=== PATIENT | female | born 1975 | race American Indian/Alaskan Native ===

== ENCOUNTER 2016-11-18 15:08 | Inpatient (IN) | payer OTHER ==
[2016-11-18 16:00] LABS: Bacteria,Urine 1+ /HPF (Negative); Bilirubin,Urine NEG (Negative); Blood,Urine NEG (Negative); Ketones,Urine 20 mg/dL (Negative); Leukocyte Esterase,Urine TR (Negative); Mucus,Urine 1+ /HPF; Nitrite,Urine NEG (Negative); Urobilinogen,Urine < 2.0 mg/dL (<2.0); WBC,Urine < 1.0 /HPF (0.0-6.0)
[2016-11-18] MEDS ORDERED: MORPHINE IV ONE ×2 (16:15→18:51)
[2016-11-18] MEDS ORDERED: ZOFRAN IV ONE (16:15)
[2016-11-18 16:22] LABS: Basophils % (Auto) 0.7 % (0.0-1.8); Eosinophils % (Auto) 0.1 % (0.0-4.3); Hematocrit 41.8 % (30.3-42.9); Hemoglobin 13.9 gm/dl (10.1-14.3); Mean Corpuscular HGB Conc 33 % (30-34); Mean Corpuscular Hemoglobin 29 pg (28-32); Mean Corpuscular Volume 86 fl (79-97); Platelet Count 274 K/mm3 (140-440); Red Blood Count 4.84 M/mm3 (3.65-5.03); Red Cell Distribution Width 14.6 % (13.2-15.2)
[2016-11-18 16:40] LABS: Anion Gap 20 mmol/L; Blood Urea Nitrogen 6 mg/dL (7-17); Calcium 9.4 mg/dL (8.4-10.2); Carbon Dioxide 21 mmol/L (22-30); Chloride 103.4 mmol/L (98-107); Glucose 109 mg/dL (65-100); Potassium 3.8 mmol/L (3.6-5.0); Sodium 141 mmol/L (137-145)
[2016-11-18 17:23] LABS: Alanine Aminotransferase 13 units/L (7-56); Albumin 4.1 g/dL (3.9-5); Albumin/Globulin Ratio 1.1 %; Alkaline Phosphatase 98 units/L (35-129); Lipase 40 units/L (13-60); Total Protein 7.7 g/dL (6.3-8.2)
[2016-11-18 17:27] LABS: Bilirubin,Direct < 0.2 mg/dL (0-0.2); Bilirubin,Indirect 0.2 mg/dL
[2016-11-18] MEDS ORDERED: NACL ONE (17:29)
[2016-11-18] MEDS ORDERED: MORPHINE ONE (18:47)
[2016-11-18] MEDS ORDERED: PEPCID IV ONE (18:48)
[2016-11-18] MEDS ORDERED: ALUM-MAG HYDROX-SIMETH 200-200-20MG/5ML PO ONE (18:48)
[2016-11-18] MEDS ORDERED: LIDOCAINE VISCOUS 2% PO ONE (18:48)
--- NOTE | 2016-11-18 19:09 | Emergency Department Report ---
ED Chest Pain HPI - General Chief Complaint: Chest Pain Stated Complaint: CHEST PAINS Time Seen by Provider: 11/18/16 15:44 Source: patient, EMS Mode of arrival: Stretcher Limitations: No Limitations - History of Present Illness Initial Comments: This is a 41-year-old Afro-[place] female presents the emergency department via EMS with complaint of pain to the lower middle portion of the chest and the upper middle portion of the abdomen that has been going on and getting progressively worse since yesterday afternoon. She developed some nausea and vomiting this morning. She denies any shortness of breath, fever, dysuria, vaginal bleeding or discharge. The patient has a history of cholelithiasis and eventually cholecystectomy through [facility]. She also says that she has some mesh in there and says that she has been having a problem with this. She is not taken anything for symptoms prior to presentation. No recent travel or sick contacts at home. She denies any other past medical history but does present with hypertension. She is a former smoker, having quit 3 months ago. She received a full dose aspirin in route. Severity scale (0 -10): 7 - Related Data Home Medications Medication Instructions Recorded Confirmed Last Taken No Known Home Medications [No 11/18/16 11/18/16 Unknown Reported Home Medications] Allergies Allergy/AdvReac Type Severity Reaction Status Date / Time No Known Allergies Allergy Unverified 11/18/16 15:24 Heart Score - HEART Score History: Moderately suspicious EKG: Normal Age: < 45 Risk factors: 1-2 risk factors Troponin: < normal limit HEART Score: 2 - Critical Actions Critical Actions: 0-3 pts:0.9-1.7%risk of adverse cardiac event.Candidate for discharge ED Review of Systems ROS: Stated complaint: CHEST PAINS Other details as noted in HPI Comment: All other systems reviewed and negative Constitutional: denies: chills, fever Eyes: denies: eye pain, eye discharge, vision change ENT: denies: ear pain, throat pain Respiratory: denies: cough, shortness of breath, wheezing Cardiovascular: chest pain. denies: palpitations Gastrointestinal: abdominal pain, nausea, vomiting Genitourinary: denies: urgency, dysuria, discharge Musculoskeletal: denies: back pain, joint swelling, arthralgia Skin: denies: rash, lesions Neurological: denies: headache, weakness, paresthesias ED Past Medical Hx - Surgical History Additional Surgical History: Cyst r emoved from colon - Social History Smoking Status: Never Smoker - Medications Home Medications: Home Medications Medication Instructions Recorded Confirmed Last Taken Type No Known Home Medications [No 11/18/16 11/18/16 Unknown History Reported Home Medications] ED Physical Exam - General Limitations: No Limitations - Other Other exam information: GENERAL: The patient is well-developed well-nourished. HEENT: Normocephalic. Atraumatic. Extraocular motions are intact. Patient has moist mucous membranes. Pupils equal reactive to light bilaterally. NECK: Supple. Trachea is midline. CHEST/LUNGS: Clear to auscultation. There is no respiratory distress noted. Chest pain is not reproducible palpation of chest wall. HEART/CARDIOVASCULAR: Regular. There is no tachycardia. There is no gallop rub or murmur. ABDOMEN: Abdomen is soft. Unable to reproduce upper abdominal discomfort to palpation. No guarding rebound tenderness. Patient has normal bowel sounds. There is no abdominal distention. SKIN: Skin is warm and dry. NEURO: The patient is awake, alert, and oriented. The patient is cooperative. The patient has no focal neurologic deficits. The patient has normal speech. MUSCULOSKELETAL: There is no tenderness or deformity. There is no limitation range of motion. There is no evidence of acute injury. ED Course Vital Signs 11/18/16 11/18/16 11/18/16 15:02 15:21 15:22 Temperature Pulse Rate 50 L 42 L Respiratory 20 13 Rate Blood Pressure 180/85 Blood Pressure [Right] O2 Sat by Pulse 100 100 100 Oximetry 11/18/16 11/18/16 11/18/16 15:23 15:30 15:40 Temperature 98.3 F Pulse Rate 51 L 44 L 45 L Respiratory 21 9 L 9 L Rate Blood Pressure 180/85 180/85 Blood Pressure 180/85 [Right] O2 Sat by Pulse 100 100 99 Oximetry 11/18/16 11/18/16 11/18/16 15:50 16:00 16:18 Temperature Pulse Rate 58 L 59 L Respiratory 22 17 Rate Blood Pressure 180/85 180/85 180/85 Blood Pressure 180/85 187/90 [Right] O2 Sat by Pulse 100 100 100 Oximetry 11/18/16 11/18/16 11/18/16 16:20 16:32 16:40 Temperature Pulse Rate 55 L 58 L 54 L Respiratory 6 L 18 Rate Blood Pressure 187/90 187/90 187/90 Blood Pressure [Right] O2 Sat by Pulse 90 100 Oximetry 11/18/16 11/18/16 11/18/16 16:50 17:00 17:10 Temperature Pulse Rate 54 L 54 L 50 L Respiratory 15 12 11 L Rate Blood Pressure 187/90 187/90 206/89 Blood Pressure [Right] O2 Sat by Pulse 97 89 92 Oximetry 11/18/16 11/18/16 11/18/16 17:20 17:30 17:40 Temperature Pulse Rate 55 L 41 L 46 L Respiratory 12 23 12 Rate Blood Pressure 206/89 206/89 206/89 Blood Pressure [Right] O2 Sat by Pulse 96 96 95 Oximetry 11/18/16 11/18/16 11/18/16 17:50 18:00 18:29 Temperature Pulse Rate 56 L 48 L Respiratory 13 9 L Rate Blood Pressure 206/89 177/76 169/67 Blood Pressure 177/76 [Right] O2 Sat by Pulse 99 97 99 Oximetry 11/18/16 11/18/16 11/18/16 18:30 18:31 18:41 Temperature Pulse Rate 50 L 53 L 56 L Respiratory 14 14 16 Rate Blood Pressure 169/67 169/67 Blood Pressure 169/67 [Right] O2 Sat by Pulse 100 99 100 Oximetry 11/18/16 11/18/16 11/18/16 18:51 19:00 19:13 Temperature Pulse Rate 52 L 50 L Respiratory 12 11 L Rate Blood Pressure 169/67 162/91 177/76 Blood Pressure [Right] O2 Sat by Pulse 96 92 66 L Oximetry 11/18/16 11/18/16 11/18/16 19:19 19:21 19:31 Temperature Pulse Rate 65 45 L 64 Respiratory 18 20 13 Rate Blood Pressure 162/91 162/91 Blood Pressure 119/75 [Right] O2 Sat by Pulse 100 96 96 Oximetry 11/18/16 11/18/16 11/18/16 19:41 19:51 20:01 Temperature Pulse Rate 46 L 41 L 46 L Respiratory 21 23 15 Rate Blood Pressure 162/91 134/86 115/58 Blood Pressure [Right] O2 Sat by Pulse 97 98 99 Oximetry 11/18/16 11/18/16 11/18/16 20:11 20:21 20:31 Temperature Pulse Rate 49 L 47 L 44 L Respiratory 22 22 21 Rate Blood Pressure 115/58 115/58 115/58 Blood Pressure [Right] O2 Sat by Pulse 96 96 95 Oximetry 11/18/16 11/18/16 11/18/16 20:41 20:51 21:00 Temperature Pulse Rate 46 L 45 L 46 L Respiratory 15 15 12 Rate Blood Pressure 115/58 115/58 111/66 Blood Pressure [Right] O2 Sat by Pulse 96 97 97 Oximetry 11/18/16 11/18/16 11/18/16 21:11 21:21 21:31 Temperature Pulse Rate 50 L 45 L 47 L Respiratory 22 18 20 Rate Blood Pressure 111/66 111/66 111/66 Blood Pressure [Right] O2 Sat by Pulse 97 96 97 Oximetry 11/18/16 11/18/16 11/18/16 21:41 21:51 22:00 Temperature Pulse Rate 47 L 54 L 48 L Respiratory 20 15 16 Rate Blood Pressure 111/66 111/66 119/70 Blood Pressure [Right] O2 Sat by Pulse 98 97 99 Oximetry 11/18/16 11/18/16 22:11 22:21 Temperature Pulse Rate 50 L 50 L Respiratory 20 18 Rate Blood Pressure 119/70 119/70 Blood Pressure [Right] O2 Sat by Pulse 96 100 Oximetry XAVIER score - Xavier Score Age > 65: (0) No Aspirin use within the Past 7 Days: (0) No 3 or more CAD Risk Factors: (0) No 2 or more Angina events in past 24 hrs: (1) Yes Known CAD with more than 50% Stenosis: (0) No Elevated Cardiac Markers: (0) No ST Deviation Greater than 0.5mm: (0) No XAVIER Score: 1 ED Medical Decision Making - Lab Data Result diagrams: 11/19/16 03:10 11/19/16 03:10 - EKG Data -: EKG Interpreted by Me EKG shows normal: sinus rhythm, axis, intervals (prolonged QT interval), QRS complexes (Q waves to the anterior leads), ST-T waves Rate: bradycardia (51 bpm) - EKG Data When compared to previous EKG there are: previous EKG unavailable Interpretation: other (sinus bradycardia, normal axis, prolonged QT interval, Q waves to the anterior leads) - Radiology Data Radiology results: report reviewed, image reviewed interpreted by me: Chest x-ray did not show any acute process. Heart is normal shape and size. No effusions. No pneumothorax. No signs of pneumonia seen. Abdominal x-ray does not show any acute process. CT of the abdomen and pelvis with IV contrast shows a 4.7 cm complex cystic lesion in the right ovary. 2.4 cm left Bartholin's cyst. CT angiography of the chest shows no evidence of pulmonary embolism. 2.8 cm round cystic appearing lesion in the right breast in the upper outer quadrant possibly a cyst. Right upper lobe subsegmental atelectasis or parenchymal scar. Multiple left renal angiomyolipoma - Medical Decision Making 41-year-old with lower middle chest pain and upper epigastric discomfort. Negative troponins thus far but elevated and equivocal d-dimer. CT angiography does not show any PE. There is a cystic lesion in the right breast and some atelectasis. CT of the abdomen and pelvis shows a ovarian cyst and a Bartholin' s gland cyst. No these appear to be etiology of the patient's symptoms. She's never had a cardiac workup. Occasionally the patient was seen having moderate to significant bradycardia. For this reason she'll be admitted for further evaluation and has been accepted for admission by the hospitalist. This is been presented to the hospitalist, Dr. Blackwell, he will either do the history and physical or will pass along to the admitting hospitalist coming in next. Critical Care Time: No Critical care attestation.: If time is entered above; I have spent that time in minutes in the direct care of this critically ill patient, excluding procedure time. ED Disposition Clinical Impression: Bradycardia Chest pain Qualifiers: Chest pain type: unspecified Qualified Code(s): R07.9 - Chest pain, unspecified Abdominal pain Qualifiers: Abdominal location: epigastric Qualified Code(s): R10.13 - Epigastric pain Disposition: 09 OP ADMIT IP TO THIS HOSP Is pt being admited?: Yes Condition: Stable Time of Disposition: 19:56
--- NOTE | 2016-11-18 19:51 | Cat Scan Report ---
FINAL REPORT EXAM: CT ANGIO CHEST HISTORY: CP, elevated dimer TECHNIQUE: High-resolution helical axial images were obtained of the chest during intravenous administration of iodinated contrast. Images are reconstructed in the sagittal and coronal planes. PRIORS: None. FINDINGS: There is no evidence of pulmonary embolism, the pulmonary arteries opacify normally. The heart and thoracic aorta appear normal. There is right upper lobe subsegmental atelectasis or parenchymal scar. Otherwise, the lungs are clear. Images through the upper abdomen show surgical clips in the gallbladder fossa. Also, there are multiple low-attenuation lesions in the left kidney consistent with angiomyolipomas. The bones are unremarkable. There is a 2.8 cm round cystic appearing lesion in the right breast upper outer quadrant possibly representing a cyst. IMPRESSION: 1. No evidence of pulmonary embolism. 2. 2.8 cm round cystic appearing lesion in the right breast upper outer quadrant possibly a cyst. Further evaluation with mammogram and ultrasound is recommended. 3. Right upper lobe subsegmental atelectasis or parenchymal scar. Three-month follow-up chest CT is recommended. 4. Multiple left renal angiomyolipomas.
--- NOTE | 2016-11-18 20:07 | Cat Scan Report ---
FINAL REPORT EXAM: CT ABDOMEN PELVIS W CON HISTORY: Abd pain TECHNIQUE: Dynamic helical CT scan through the abdomen and pelvis during and again after intravenous injection of iodinated contrast. Images are reconstructed in the sagittal and coronal planes. Oral contrast was not given. PRIORS: None. FINDINGS: The lung bases are clear. The liver, spleen and adrenal glands appear normal. There are surgical clips in the gallbladder fossa. There has been surgical removal of pancreatic head. There are multiple low-attenuation lesions throughout the left kidney consistent with angiomyolipoma. The uterus is absent. The left ovary appears grossly normal. There is a 3.9 x 4.7 x 3.8 cm complex cystic lesion of the right ovary. The right kidney appears normal. The stomach appears grossly within normal limits. There are no abnormally dilated loops of bowel or acute inflammatory changes. The abdominal aorta has a normal diameter. The bones and subcutaneous soft tissues are unremarkable for age. There is a 2.4 cm left vulvar cyst consistent with a Bartholin cyst. IMPRESSION: 1. 4.7 cm complex cystic lesion in the right ovary. Further evaluation with ultrasound is recommended. 2. 2.4 cm left Bartholin cyst 3. Otherwise, no acute findings in the abdomen/pelvis
[2016-11-18] MEDS ORDERED: MORPHINE IV PRN (22:19)
[2016-11-18] MEDS ORDERED: ZOFRAN IV PRN (22:19)
[2016-11-18] MEDS ORDERED: MILK OF MAGNESIA PO PRN (22:19)
[2016-11-18] MEDS ORDERED: DULCOLAX PR PRN (22:19)
[2016-11-18] MEDS ORDERED: SODIUM CHLORIDE FLUSH SYRINGE 10 ML IV PRN (22:19)
[2016-11-18] MEDS ORDERED: TYLENOL PO PRN (22:19)
--- NOTE | 2016-11-18 22:26 | History and Physical Report ---
History of Present Illness History of present illness: 41-year-old man with no medical problems comes emergency room with complaints of chest pain located in the epigastric area, described as something squeezing her chest, constant, intensity 7/10, radiating to the left shoulder, worse with activity, better rest. Admits to nausea vomiting 2 days, shortness breath, diaphoresis palpitation, dizziness. She states she saw her primary care physician yesterday and everything was okay Review of systems Constitutional: no fever, no chills, no weight loss Ears, eyes, nose, mouth and throat: no nasal congestion, no nasal discharge, no sinus pressure, no vision change, no red eye. Neck: No neck pain or rigidity. Cardiovascular: no orthopnea, no palpitations, no leg swelling Respiratory: No cough, no congestion, no wheezing Gastrointestinal: abdominal pain, hematochezia Genitourinary : no dysuria, frequency , no hematuria Musculoskeletal: no joint swelling or muscle ache Integumentary: no rash, no pruritis Neurological: no parathesias, no focal weakness Endocrine: no cold or heat intolerance, no polyuria or polydipsia Hematologic/Lymphatic: no easy bruising, no easy bleeding, no gland swelling Allergic/Immunologic: no urticaria, no angioedema PAST MEDICAL HISTORY:none PAST SURGICAL HISTORY: Cystectomy FAMILY HISTORY: Hypertension SOCIAL HISTORY: Hypertension Medications and Allergies Allergies Allergy/AdvReac Type Severity Reaction Status Date / Time No Known Allergies Allergy Unverified 11/18/16 15:24 Home Medications Medication Instructions Recorded Confirmed Last Taken Type No Known Home Medications [No 11/18/16 11/18/16 Unknown History Reported Home Medications] Exam - Physical Exam Narrative exam: Gen. appearance: Patient lying in bed, no apparent distress HEENT: Normocephalic, atraumatic, pupils equally round and reactive to light, extraocular movement intact, and no sclericterus,. No JVD or thyromegaly or nodule,neck supple, no carotid bruit ,mucous membranes moist, no exudate or erythema Heart: S1, S2, regular rate and rhythm Lungs: Clear to auscultation bilaterally, breathing comfortable Abdomen: Positive bowel sounds, nontender, nondistended, no organomegaly Extremity: No edema, cyanosis, clubbing Skin: No rash, nodules, warm, dry Neuro: Oriented 3, cranial nerves II-12 intact, speech is fluent, motor and sensory intact - Constitutional Vitals: Temp Pulse Resp BP Pulse Ox 98.3 F 46 L 15 115/58 96 11/18/16 15:23 11/18/16 20:41 11/18/16 20:41 11/18/16 20:41 11/18/16 20:41 Results - Labs CBC & Chem 7: 11/19/16 03:10 11/19/16 03:10 Labs: Abnormal lab results 11/18/16 11/18/16 11/18/16 Range/Units 16:01 16:01 16:01 Lymph # 1.1 L (1.2-5.4) K/mm3 Seg Neutrophils % 79.2 H (40.0-70.0) % D-Dimer 291.93 H (0-234) ng/mlDDU Carbon Dioxide 21 L (22-30) mmol/L BUN 6 L (7-17) mg/dL Creatinine 0.6 L (0.7-1.2) mg/dL Glucose 109 H (65-100) mg/dL - Imaging and Cardiology EKG: image reviewed Chest x-ray: image reviewed Assessment and Plan Assessment Hypertensive urgency, movement Chest pain secondary to #1 Mass versus cyst in the right breast Plan Admit to medicine Start IV hydralazine as needed for blood pressure control Check cardiac enzymes, liver profile and obtain a stress test Ultrasound of the breast Start aspirin, IV morphine, DVT prophylaxis
[2016-11-18 23:30] LABS: Basophils % (Auto) 0.9 % (0.0-1.8); Hematocrit 40.2 % (30.3-42.9); Hemoglobin 13.5 gm/dl (10.1-14.3); Mean Corpuscular HGB Conc 34 % (30-34); Mean Corpuscular Hemoglobin 30 pg (28-32); Mean Corpuscular Volume 88 fl (79-97); Platelet Count 288 K/mm3 (140-440); Red Blood Count 4.58 M/mm3 (3.65-5.03); Red Cell Distribution Width 14.8 % (13.2-15.2); White Blood Count 6.4 K/mm3 (4.5-11.0)
[2016-11-18 23:44] LABS: Anion Gap 19 mmol/L; Blood Urea Nitrogen 6 mg/dL (7-17); Calcium 9.3 mg/dL (8.4-10.2); Carbon Dioxide 24 mmol/L (22-30); Chloride 103.6 mmol/L (98-107); Glucose 106 mg/dL (65-100); Sodium 143 mmol/L (137-145)
[2016-11-18 23:49] LABS: Creatine Kinase 104 units/L (30-135)
[2016-11-18 23:51] LABS: Creatine Kinase MB < 1.0 ng/mL (0.0-4.0)
[2016-11-18] MEDS: MORPHINE IV PRN (23:54)
[2016-11-19 02:31] LABS: Cholesterol 138 mg/dL (50-199); HDL Cholesterol 52 mg/dL (40-59); LDL Cholesterol,Direct 77 mg/dL (50-130); Triglycerides 45 mg/dL (2-149)
[2016-11-19 03:38] LABS: Basophils % (Auto) 0.1 % (0.0-1.8); Eosinophils % (Auto) 0.1 % (0.0-4.3); Hematocrit 40.7 % (30.3-42.9); Hemoglobin 13.3 gm/dl (10.1-14.3); Mean Corpuscular HGB Conc 33 % (30-34); Mean Corpuscular Hemoglobin 28 pg (28-32); Mean Corpuscular Volume 87 fl (79-97); Platelet Count 260 K/mm3 (140-440); Red Blood Count 4.68 M/mm3 (3.65-5.03); Red Cell Distribution Width 14.5 % (13.2-15.2); White Blood Count 7.1 K/mm3 (4.5-11.0)
[2016-11-19 03:48] LABS: Anion Gap 19 mmol/L; BUN/Creatinine Ratio 11.66; Blood Urea Nitrogen 7 mg/dL (7-17); Calcium 8.4 mg/dL (8.4-10.2); Carbon Dioxide 22 mmol/L (22-30); Chloride 102.7 mmol/L (98-107); Glucose 102 mg/dL (65-100); Potassium 3.5 mmol/L (3.6-5.0); Sodium 140 mmol/L (137-145)
--- NOTE | 2016-11-19 08:25 | Admit Criteria Form ---
Admission Criteria Documentation: TELEMETRY CARE Telemetry Admission Guidelines (Place 'X' for any and all applicable criteria): Admission to telemetry [A] may be indicated for ANY ONE of the following(1)(2)(3 )(4)(5): [X ]I. Cardiac disease, including ANY ONE of the following (9)(10)(11)(12)( 13): [ ]a) Postacute ND [ ]b) Low-risk patients with ST-segment elevation ND who have undergone successful percutaneous coronary intervention [ ]c) Unstable angina [ ]d) Suspected ND (until it is ruled out) [ ]e) Post cardiac surgery (first 48 to 72 hours unless complications occur) [ X]f) Acute arrhythmias (including significant tachycardia or bradycardia) [B] [ ]g) Firing of an implantable cardioverter defibrillator [C] [ ]h) Suspected pacemaker or implantable cardioverter defibrillator malfunction (10) [ ]i) New administration or adjustment of an antiarrhythmic drug [D ] [ ]j) Child admitted for acute congestive heart failure [ ]j) Long QT syndrome [ ]k) Advanced heart block (eg, second-degree Mobitz type II, third- degree heart block) [ ]l) Acute myocarditis or pericarditis [ ]m) Short-term (ambulatory or inpatient) monitoring after a cardiac procedure as indicated by ANY ONE of the following [E]: [ ]i) Electrophysiologic studies [ ]ii) Percutaneous coronary intervention with stent placement [ ]iii) Pacemaker placement with cardiac conduction defect [ ]iv) Implantable cardiac defibrillator placement [ ]II. Drug overdose or poisoning with substance that causes arrhythmias or QT prolongation (eg, phenothiazines, sympathomimetic agents, cyclic antidepressants, digitalis, antiarrhythmic drugs)(15) [ ]III. Short-term (ambulatory or inpatient) monitoring after therapeutic or diagnostic procedure requiring conscious sedation or anesthesia (eg, endoscopy, elective cardioversion) [ ]IV. Acute cerebrovascular even[F](18) [ ]V. Massive blood transfusion (eg, at least 10 units of packed red blood cells in 24 hours) [ ]. Variceal bleeding after endoscopy, sclerotherapy, or IV vasopressin [ ]VII. Uncorrected electrolyte abnormalities associated with an increased risk of dangerous arrhythmia [G]; examples include [ ]a) Hyperkalemia with attributable ECG changes [ ]b) Potassium greater than 6.5 mmol/L (mEq/L) in a patient without history of chronic renal disease [ ]c) Prolonged QT attributed to hypokalemia, hypomagnesemia, or hypocalcemia [ ]VIII.Unexplained syncope or other neurologic event suspected of being due to arrhythmia due to a finding that increases risk; examples include(19)(20)(21): [ ]a) High-risk ECG findings (eg, bifascicular block, bradycardia, abnormal QT interval, ventricular pre- excitation) [ ]b) History of previous syncope due to arrhythmia [ ]c) Abnormal ventricular function (eg, reduced ejection fraction ) [ ]d) Exertional or supine syncope [ ]e) Concerning syncope characteristics (eg, sudden loss of consciousness without prodrome) [ ]f) Family history of sudden [ ]g) Use of arrhythmogenic medication [ ]h) Suspected cardiac ischemia [ ]i) Known channelopathy (eg, long QT syndrome, Brugada syndrome, or catecholaminergic paroxysmal ventricular tachycardia) [ ]j) Known structural heart disease (eg, hypertrophic cardiomyopathy , severe valvular disease) [ ]k) Palpitations preceding syncope The original [employer] content created by [employer] has been revised. The portions of the content which have been revised are identified through the use of italic text or in bold, and [facility] has neither reviewed nor approved the modified material. All other unmodified content is copyright [employer]. Please see references footnoted in the original [employer] edition 2016 Admission Criteria Met: Yes
--- NOTE | 2016-11-19 08:47 | XRay Report ---
ABDOMINAL SERIES: History: Abdominal pain. Erect chest film shows no acute or significant changes involving the heart or lung arnold. There is no evidence of free air beneath the diaphragms. The gas pattern within the abdomen is unremarkable. There is no evidence of bowel dilatation, significant air-fluid levels, or masses. Organ shadows are unremarkable. Cholecystectomy clips are noted in the right upper quadrant. IMPRESSION: Abdominal series within normal limits.
[2016-11-19] MEDS: MORPHINE IV PRN ×4 (08:55→22:05)
[2016-11-19] MEDS: ASPIRIN PO SCH (13:42)
[2016-11-19] MEDS: LOVENOX SUB-Q SCH (13:42)
--- NOTE | 2016-11-19 18:15 | Progress Note ---
Assessment and Plan Assessment and plan: Chest pain -Cardiac events are negative -Stress test was negative - Pain control Right complex ovarian cyst -GI consulted Right breast cystic mass -Endoscope as an outpatient Repaired ventral hernia - She is complaining pain - We'll scheduled her as outpatient to be seen by surgery DVT prophylaxis Disposition - We will be discharged tomorrow after she was seen by [facility]. History Interval history: Patient was seen and evaluated this morning, she is still complaining some pressure-like sensation on the chest. Hospitalist Physical - Physical exam Narrative exam: Not in cardiopulmonary distress. The patient is obese. Vital signs as documented. Head exam is unremarkable. No scleral icterus . Neck is without jugular venous distension, thyromegaly, or carotid bruits. Lungs are clear to auscultation. Cardiac exam reveals regular rate and Rhythm. First and second heart sounds normal. No murmurs, rubs or gallops. Abdominal exam reveals normal bowel sounds, no masses, no organomegaly and no aortic enlargement. Extremities are nonedematous and both femoral and pedal pulses are normal. STUDIO MANAGER: Alert and oriented 3. No focal weakness. - Constitutional Vitals: Temp Pulse Resp BP Pulse Ox 98.0 F 65 18 126/66 100 11/19/16 16:43 11/19/16 16:43 11/19/16 16:43 11/19/16 16:43 11/19/16 16:43 Results - Labs CBC & Chem 7: 11/19/16 03:10 11/19/16 03:10 Labs: Laboratory Last Values WBC 7.1 K/mm3 (4.5-11.0) 11/19/16 03:10 RBC 4.68 M/mm3 (3.65-5.03) 11/19/16 03:10 Hgb 13.3 gm/dl (10.1-14.3) 11/19/16 03:10 Hct 40.7 % (30.3-42.9) 11/19/16 03:10 MCV 87 fl (79-97) 11/19/16 03:10 MCH 28 pg (28-32) 11/19/16 03:10 MCHC 33 % (30-34) 11/19/16 03:10 RDW 14.5 % (13.2-15.2) 11/19/16 03:10 Plt Count 260 K/mm3 (140-440) 11/19/16 03:10 Lymph % (Auto) 36.0 % (13.4-35.0) H 11/19/16 03:10 [place] % (Auto) 6.0 % (0.0-7.3) 11/19/16 03:10 Eos % (Auto) 0.1 % (0.0-4.3) 11/19/16 03:10 Baso % (Auto) 0.1 % (0.0-1.8) 11/19/16 03:10 Lymph # 2.5 K/mm3 (1.2-5.4) 11/19/16 03:10 [place] # 0.4 K/mm3 (0.0-0.8) 11/19/16 03:10 Eos # 0.0 K/mm3 (0.0-0.4) 11/19/16 03:10 Baso # 0.0 K/mm3 (0.0-0.1) 11/19/16 03:10 Seg Neutrophils % 57.8 % (40.0-70.0) 11/19/16 03:10 Seg Neutrophils # 4.1 K/mm3 (1.8-7.7) 11/19/16 03:10 D-Dimer 291.93 ng/mlDDU (0-234) H 11/18/16 16:01 Sodium 140 mmol/L (137-145) 11/19/16 03:10 Potassium 3.5 mmol/L (3.6-5.0) L 11/19/16 03:10 Chloride 102.7 mmol/L (98-107) 11/19/16 03:10 Carbon Dioxide 22 mmol/L (22-30) 11/19/16 03:10 Anion Gap 19 mmol/L 11/19/16 03:10 BUN 7 mg/dL (7-17) 11/19/16 03:10 Creatinine 0.6 mg/dL (0.7-1.2) L 11/19/16 03:10 Estimated GFR > 60 ml/min 11/19/16 03:10 BUN/Creatinine Ratio 11.66 % 11/19/16 03:10 Glucose 102 mg/dL (65-100) H 11/19/16 03:10 Calcium 8.4 mg/dL (8.4-10.2) 11/19/16 03:10 Total Bilirubin 0.40 mg/dL (0.1-1.2) 11/18/16 16:01 Direct Bilirubin < 0.2 mg/dL (0-0.2) 11/18/16 16:01 Indirect Bilirubin 0.2 mg/dL 11/18/16 16:01 AST 28 units/L (5-40) 11/18/16 16:01 ALT 13 units/L (7-56) 11/18/16 16:01 Alkaline Phosphatase 98 units/L (35-129) 11/18/16 16:01 Total Creatine Kinase 104 units/L (30-135) 11/18/16 23:08 CK-MB (CK-2) < 1.0 ng/mL (0.0-4.0) 11/18/16 23:08 CK-MB (CK-2) Rel Index 0.9 (0-4) 11/18/16 23:08 Troponin T < 0.010 ng/mL (0.00-0.029) 11/19/16 07:12 Total Protein 7.7 g/dL (6.3-8.2) 11/18/16 16:01 Albumin 4.1 g/dL (3.9-5) 11/18/16 16:01 Albumin/Globulin Ratio 1.1 % 11/18/16 16:01 Triglycerides 45 mg/dL (2-149) 11/18/16 23:08 Cholesterol 138 mg/dL (50-199) 11/18/16 23:08 LDL Cholesterol Direct 77 mg/dL (50-130) 11/18/16 23:08 HDL Cholesterol 52 mg/dL (40-59) 11/18/16 23:08 Cholesterol/HDL Ratio 2.65 % 11/18/16 23:08 Lipase 40 units/L (13-60) 11/18/16 16:01 Urine Color Yellow (Yellow) 11/18/16 15:25 Urine Turbidity Clear (Clear) 11/18/16 15:25 Urine pH 7.0 (5.0-7.0) 11/18/16 15:25 Ur Specific [place] 1.019 (1.003-1.030) 11/18/16 15:25 Urine Protein 100 mg/dl mg/dL (Negative) 11/18/16 15:25 Urine Glucose (UA) Neg mg/dL (Negative) 11/18/16 15:25 Urine Ketones 20 mg/dL (Negative) 11/18/16 15:25 Urine Blood Neg (Negative) 11/18/16 15:25 Urine Nitrite Neg (Negative) 11/18/16 15:25 Urine Bilirubin Neg (Negative) 11/18/16 15:25 Urine Urobilinogen < 2.0 mg/dL (<2.0) 11/18/16 15:25 Ur Leukocyte Esterase Tr (Negative) 11/18/16 15:25 Urine WBC (Auto) < 1.0 /HPF (0.0-6.0) 11/18/16 15:25 Urine RBC (Auto) 3.0 /HPF (0.0-6.0) 11/18/16 15:25 U Epithel Cells (Auto) 3.0 /HPF (0-13.0) 11/18/16 15:25 Urine Bacteria (Auto) 1+ /HPF (Negative) 11/18/16 15:25 Urine Mucus 1+ /HPF 11/18/16 15:25 Urine HCG, Qual Negative (Negative) 11/18/16 15:25
[2016-11-19] MEDS: PROTONIX PO SCH (19:48)
--- NOTE | 2016-11-19 20:35 | Consultation ---
History of Present Illness Consult date: 11/19/16 Reason for consult: other (ovarian cyst) History of present illness: 43-year-old black female para 6006 status post hysterectomy in 1998 for pain and endometriosis. Patient's had multiple abdominal surgeries including placement of a mesh and presented to the emergency room she states for repeated episode of vomiting up or abdominal pain and epigastric pain. Patient workup included the abdominal pelvic CT scan which showed a possible complex cyst on the patient's right ovary. Past History Past Medical History: other (endometriosis ) Past Surgical History: section (with bilateral tubal ligation), hysterectomy, other (patient states abdominal cyst removed with mesh placed in her abdomen) Medications and Allergies Allergies Allergy/AdvReac Type Severity Reaction Status Date / Time No Known Allergies Allergy Unverified 11/18/16 15:24 Home Medications Medication Instructions Recorded Confirmed Last Taken Type No Known Home Medications [No 11/18/16 11/18/16 Unknown History Reported Home Medications] Active Meds: Active Medications Acetaminophen (Tylenol) 650 mg PO Q4H PRN PRN Reason: Pain MILD(1-3)/Fever >100.5/HAYES Aspirin (Aspirin) 325 mg PO QDAY FORMERLY [facility], 1928[facility]1983 Last Admin: 11/19/16 13:42 Dose: 325 mg Bisacodyl (Dulcolax) 10 mg SD QDAY PRN PRN Reason: Constipation unrelieved by MOM Enoxaparin Sodium (Lovenox) 40 mg SUB-Q QDAY FOR[facility]LY [facility], 1928[facility]1983 Last Admin: 11/19/16 13:42 Dose: 40 mg Magnesium Hydroxide (Milk Of Magnesia) 30 ml PO Q4H PRN PRN Reason: Constipation Morphine Sulfate (Morphine) 2 mg IV Q4H PRN PRN Reason: Pain, Moderate (4-6) Last Admin: 11/19/16 18:15 Dose: 2 mg Ondansetron HCl (Zofran) 4 mg IV Q4H PRN PRN Reason: N/V unrelieved by Reglan Pantoprazole Sodium (Protonix) 40 mg PO QDAY FOR[facility], [facility]1983 Last Admin: 11/19/16 19:48 Dose: 40 mg - Vital Signs Vital signs: Vital Signs Pulse Pulse Ox 50 L 100 11/18/16 15:02 11/18/16 15:02 Temp Pulse Resp BP Pulse Ox 98.0 F 65 18 126/66 100 11/19/16 16:43 11/19/16 16:43 11/19/16 16:43 11/19/16 16:43 11/19/16 16:43 - Physical Exam Abdomen: Positive: normal appearance, soft, other (neurosurgical incision) Results Result Diagrams: 11/19/16 03:10 11/19/16 03:10 Abnormal lab results 11/18/16 11/18/16 11/19/16 Range/Units 23:08 23:08 03:10 Lymph % (Auto) 36.0 H (13.4-35.0) % Seg Neutrophils % 72.4 H (40.0-70.0) % Potassium (3.6-5.0) mmol/L BUN 6 L (7-17) mg/dL Creatinine 0.5 L (0.7-1.2) mg/dL Glucose 106 H (65-100) mg/dL 11/19/16 Range/Units 03:10 Lymph % (Auto) (13.4-35.0) % Seg Neutrophils % (40.0-70.0) % Potassium 3.5 L (3.6-5.0) mmol/L BUN (7-17) mg/dL Creatinine 0.6 L (0.7-1.2) mg/dL Glucose 102 H (65-100) mg/dL All other labs normal. Assessment and Plan - Patient Problems (1) Ovarian cyst Current Visit: Yes Status: Acute Plan to address problem: As per recommendation radiologist we'll order a pelvic ultrasound which we'll give you better imaging of her ovary. She does not feel that this is source of the patient's discomfort and most likely is benign cyst that will resolve on its own. We will evaluate with ultrasound tomorrow for more clarity. Also attempted to contact attending for this patient is on the hospitalist services were informed that intended me back tomorrow morning.
[2016-11-20] MEDS: MORPHINE IV PRN (06:06)
--- NOTE | 2016-11-20 10:02 | Discharge Summary ---
Providers - Providers Date of Admission: 11/18/16 22:19 Date of discharge: 11/20/16 Attending physician: NICANOR MENDOZA MD 11/19/16 13:43 Consult to Physician [CONS] Routine Consulting Provider: PADMINI JO Reason For Exam: right complex ovarian mass Place consult to:: Sandro Notified:: Sandro Phone number called:: [phone] Was contact made?: Yes If yes, spoke with:: danny Time called:: 19:02 Primary care physician: [facility]WN TECHNICIAN Hospitalization Reason for admission: chest pain Condition: Stable Pertinent studies: Exercise stress test was done and negative for ischemia but i didn't see any documentation CTA showed right breast cyst otherwise negative. Hospital course: 41-year-old man with no medical problems comes emergency room with complaints of chest pain located in the epigastric area, described as something squeezing her chest, constant, intensity 7/10, radiating to the left shoulder, worse with activity, better rest. Admits to nausea vomiting 2 days, shortness breath, diaphoresis palpitation, dizziness. She states she saw her primary care physician yesterday and everything was okay. patient was admitted and cardiac enzymes were negative and stress test was negative for ischemia. patient said she had ventral hernia repair at [facility] and was scheduled for mesh removal and didn't make her appointment and asked for evaluation by surgery and scheduled to see Dr Guerra as an O/P. Patient has incidental findings of right breast cyst and recommended to have breat U/S, but radiology said they can't do as inpatient and I have communicated with the patient and she understood and verbalized she will schedule with her PCP for evaluation of the breast. Patient has history of GERD and she is on H2 brennen. Dr Jo from [employer] was consulted to evaluate complex ovarian cyst, saw her and here is his recommendations "As per recommendation radiologist we'll order a pelvic ultrasound which we'll give you better imaging of her ovary. She does not feel that this is source of the patient's discomfort and most likely is benign cyst that will resolve on its own. We will evaluate with ultrasound tomorrow for more clarity." Patient was hemodynamically stable at the time of discharge. Her medications were reviewed and updated at the time of discharge. Patients questions and concerns were addressed at bedside. Disposition: DC-01 TO HOME OR SELFCARE Time spent for discharge: 31 minutes - Discharge Diagnoses (1) Abdominal pain Status: Acute Qualifiers: Abdominal location: epigastric Qualified Code(s): R10.13 - Epigastric pain (2) Bradycardia Status: Acute (3) Chest pain Status: Acute Qualifiers: Chest pain type: unspecified Ischemic chest pain type: I Qualified Code(s ): R07.9 - Chest pain, unspecified (4) Ovarian cyst Status: Acute Qualifiers: Laterality: L Core Measure Documentation - Palliative Care Palliative Care/ Comfort Measures: Not Applicable - Core Measures Any of the following diagnoses?: none Exam - Physical Exam Narrative exam: Not in cardiopulmonary distress. The patient is obese. Vital signs as documented. Head exam is unremarkable. No scleral icterus . Neck is without jugular venous distension, thyromegaly, or carotid bruits. Lungs are clear to auscultation. Cardiac exam reveals bradycardia. Abdominal exam reveals normal bowel sounds, no masses, no organomegaly and no aortic enlargement. Extremities are nonedematous and both femoral and pedal pulses are normal. SNOWMAKER: Alert and oriented 3. No focal weakness. - Constitutional Vitals: Temp Pulse Resp BP Pulse Ox 98.4 F 54 L 20 135/74 100 11/20/16 06:13 11/20/16 06:13 11/20/16 06:13 11/20/16 06:13 11/20/16 06:13 Plan Activity: no restrictions Weight Bearing Status: Full Weight Bearing Diet: low fat, low cholesterol Follow up with: DORIS GUERRA MD [Staff Physician] - 14 Days (Patient has history of hernia repair with mesh and coplains discomfort.) PRIMARY CAREMD [Primary Care Provider] - 7 Days (Patientv needs breast U/S) Forms: Work/School Release Form Prescriptions: HYDROcodone/APAP 5-325 [[place] 5/325] 1 each PO Q6HR PRN #15 tablet PRN Reason: Pain
[2016-11-20 10:36] VITALS: BP 133/77
[2016-11-20] MEDS: LOVENOX SUB-Q SCH (13:41)
[2016-11-20] MEDS: ASPIRIN PO SCH (13:41)
[2016-11-20] MEDS: PROTONIX PO SCH (13:42)
--- NOTE | 2016-11-20 14:05 | Event Note ---
Date: 11/20/16 Pt doing well, agree with d/c home, she will follow up with Dr. Jo for the evaluation of the ovary cyst
--- NOTE | 2016-11-21 11:02 | Ultrasound Report ---
TRANSABDOMINAL AND TRANSVAGINAL PELVIC ULTRASOUND: November seventeen CLINICAL: Ovarian mass by CT. COMPARISON: 11/18/16 CT abdomen and pelvis. FINDINGS: A transvaginal examination was attempted unsuccessfully and I assume the patient would not tolerate the probe. Several transvaginal images are inadequate without depiction of the urinary bladder, vaginal cuff or adnexa. Transabdominal pelvic ultrasound demonstrated absence of the uterus and a normal vaginal cuff. An irregular cystic right adnexal mass measures 6.6 x 4.6 x 4.4 cm and correlates with the mass identified on CT. No normal right ovary is identified. No left ovary. No ascites.Normal urinary bladder. 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 Status post hysterectomy. No left ovary identified.
== END 2016-11-20 13:51 | disposition home or self-care (01) | DRG 305 ==
LOC: ED 15:08 → 4A 22:19
PROVIDERS: ADMIT Internal Medicine; ATTEND Internal Medicine
DX: I16.0 Hypertensive urgency (principal); K21.9 Gastro-esophageal reflux disease without esophagitis; R00.1 Bradycardia, unspecified; I10 Essential (primary) hypertension; N83.201 Unspecified ovarian cyst, right side; N63 Unspecified lump in breast; Z98.51 Tubal ligation status; Z82.49 Family history of ischemic heart disease and other diseases of the circulatory system; Z90.49 Acquired absence of other specified parts of digestive tract; Z90.710 Acquired absence of both cervix and uterus
CPT/HCPCS: 36415; 71275; 74022; 74177; 76830; 76856; 80048; 80061; 80074; 81001; 81025; 82550; 82553; 83690; 84484; 85025; 85379; 93005; 93010; 93017; 96374; 96375; 96376; 99406; J1650; J2270; J2405; Q9967

== ENCOUNTER 2018-04-12 07:25 | Inpatient (IN) | payer OTHER ==
[2018-04-12 08:01] LABS: Basophils % (Auto) 0.4 % (0.0-1.8); Hematocrit 41.6 % (30.3-42.9); Hemoglobin 13.8 gm/dl (10.1-14.3); Lymphocytes # (Auto) 1.3 K/mm3 (1.2-5.4); Lymphocytes % (Auto) 17.5 % (13.4-35.0); Mean Corpuscular HGB Conc 33 % (30-34); Mean Corpuscular Hemoglobin 29 pg (28-32); Mean Corpuscular Volume 86 fl (79-97); Monocytes # (Auto) 0.2 K/mm3 (0.0-0.8); Platelet Count 273 K/mm3 (140-440); Red Blood Count 4.84 M/mm3 (3.65-5.03); Red Cell Distribution Width 13.7 % (13.2-15.2)
[2018-04-12 08:24] LABS: BUN/Creatinine Ratio 10; Blood Urea Nitrogen 5 mg/dL (7-17); Calcium 9.3 mg/dL (8.4-10.2); Hemolysis Index 17
--- NOTE | 2018-04-12 08:44 | XRay Report ---
CHEST 2 VIEWS INDICATION: Chest pain. COMPARISON: 11/18/2016 imaging. FINDINGS: Frontal and lateral chest radiographs demonstrate right hemidiaphragm approximately 3 cm higher than the left. Borderline/mild cardiomegaly. Normal mediastinal and hilar contours. Mild horizontal right mid lung perihilar atelectasis or scarring, described on prior CT. Otherwise clear lungs without pleural effusions or CHF. Multiple upper to mid abdominal surgical clips/densities again noted. Intact bones. CONCLUSION: No acute significant chest process with various other incidental findings, as above. Thank you for the opportunity to participate in this patient's care.
--- NOTE | 2018-04-12 08:44 | Emergency Department Report ---
Chief Complaint: Chest Pain Stated Complaint: CHEST PRESSURE/RT HAND PAIN Time Seen by Provider: 04/12/18 08:41 - HPI History of Present Illness: 42-year-old -[place]aced[place] female presents to the emergency department with 2 complaints. First, the patient having a few days of some intractable nausea and vomiting. She says that she has a history of having a mesh placed secondary to a hernia and "sometimes it gives me some problems and causes nausea and vomiting." She also has a history of cholecystectomy and partial pancreatectomy. Secondly, the patient complains of some midsternal chest pain that is also going on for the past 2 days. It is associated with some mild shortness of breath. She has a history of hypertension for which she takes lisinopril but she has not been able to take it recently secondary to the nausea and vomiting. She is positive for family history of cardiac disease/events including her mother having a heart attack in her early 40s. She denies any tobacco or illicit drug use or abuse. - ROS Review of Systems: Positive for nausea, vomiting, chest pain Negative for fever, dysuria, vaginal bleeding or discharge - Exam Vital Signs: Vital Signs 04/12/18 07:33 Temperature 99.1 F Pulse Rate 68 Blood Pressure 161/81 O2 Sat by Pulse 99 Oximetry Physical Exam: Heart and lungs sounds are normal to auscultation. Abdomen is soft. There is some reproducible chest pain to palpation. Patient appears uncomfortable. MSE screening note: Focused history and physical exam performed. Due to findings the following was ordered: The EKG does not show any signs of ST elevation [place]. So far she has a normal- appearing CBC, BMP, troponin. Chest x-ray did not show any acute process. I have added a LFT, lipase, serum , 2 view abdominal x-ray. The patient will be moved to the main emergency department secondary to her chest pain with some cardiac risk factors. ED Medical Decision Making - Lab Data Result diagrams: 04/12/18 07:51 04/12/18 07:51 ED Disposition for MSE Condition: Stable
[2018-04-12] MEDS ORDERED: ZOFRAN IV ONE ×2 (08:45→09:51)
[2018-04-12 09:08] LABS: Alanine Aminotransferase 12 units/L (7-56); Albumin 4.8 g/dL (3.9-5); Lipase 8 units/L (13-60)
[2018-04-12 09:11] LABS: Bilirubin,Direct < 0.2 mg/dL (0-0.2)
--- NOTE | 2018-04-12 09:33 | Emergency Department Report ---
ED Chest Pain HPI - General Chief Complaint: Chest Pain Stated Complaint: CHEST PRESSURE/RT HAND PAIN Time Seen by Provider: 04/12/18 08:41 Source: patient Mode of arrival: Ambulatory Limitations: No Limitations - History of Present Illness Initial Comments: Patient is a 42-year-old female presents to emergency room with complaints of chest pain 2 days. Patient states the chest pain is substernal and nonradiating. Patient states the pain is a pressure and is a 7 out of 10. Patient states the pain is better with rest and worse with exertion. Patient also complains of epigastric pain and nausea. Patient states that her epigastric pain is better with rest and worse with eating and movement. MD Complaint: chest pain -: Sudden Onset: during rest Pain Location: substernal Pain Radiation: none Severity scale (0 -10): 7 Quality: pressure, squeezing Consistency: constant Improves With: rest Worsens With: exertion re: nausea, vomting, dyspnea. denies: diaphoresis, sense of impending doom Other Symptoms: denies: cough, fever, syncope, rash, acid taste in mouth, leg swelling, palpitations, burping Treatments Prior to Arrival: none Aspirin use within the Past 7 Days: (0) No - Related Data On Oral Contraceptives: No Home Medications Medication Instructions Recorded Confirmed Last Taken Aspirin [Adult Aspirin] 81 mg PO DAILY 04/12/18 04/12/18 04/12/18 hydrALAZINE [Apresoline TAB] 10 mg PO QDAY 04/12/18 04/12/18 04/12/18 Allergies Allergy/AdvReac Type Severity Reaction Status Date / Time No Known Allergies Allergy Unverified 11/18/16 15:24 Heart Score - HEART Score History: Slightly suspicious EKG: Normal Age: < 45 Risk factors: No known risk factors Troponin: < normal limit HEART Score: 0 ED Review of Systems ROS: Stated complaint: CHEST PRESSURE/RT HAND PAIN Other details as noted in HPI Constitutional: denies: chills, fever Eyes: denies: eye pain, eye discharge, vision change ENT: denies: ear pain, throat pain Respiratory: shortness of breath. denies: cough, wheezing Cardiovascular: chest pain. denies: palpitations Endocrine: no symptoms reported Gastrointestinal: abdominal pain, nausea. denies: diarrhea Genitourinary: denies: urgency, dysuria, discharge Musculoskeletal: denies: back pain, joint swelling, arthralgia Skin: denies: rash, lesions Neurological: denies: headache, weakness, paresthesias Psychiatric: denies: anxiety, depression Hematological/Lymphatic: denies: easy bleeding, easy bruising ED Past Medical Hx - Past Medical History Previous Medical History?: Yes Hx Hypertension: Yes Hx Congestive Heart Failure: No Hx Diabetes: No Hx Arthritis: Yes Hx Asthma: No Hx COPD: No - Surgical History Past Surgical History?: Yes Additional Surgical History: Cyst r emoved from colon - Family History Family history: no significant - Social History Smoking Status: Never Smoker Substance Use Type: None - Medications Home Medications: Home Medications Medication Instructions Recorded Confirmed Last Taken Type Aspirin [Adult Aspirin] 81 mg PO DAILY 04/12/18 04/12/18 04/12/18 History hydrALAZINE [Apresoline TAB] 10 mg PO QDAY 04/12/18 04/12/18 04/12/18 History ED Physical Exam - General Limitations: No Limitations General appearance: alert, in no apparent distress - Head Head exam: Present: atraumatic, normocephalic - Eye Eye exam: Present: normal appearance - ENT ENT exam: Present: mucous membranes moist - Neck Neck exam: Present: normal inspection - Respiratory Respiratory exam: Present: normal lung sounds bilaterally. Absent: respiratory distress - Cardiovascular Cardiovascular Exam: Present: regular rate, normal rhythm. Absent: systolic murmur, diastolic murmur, rubs, gallop - GI/Abdominal GI/Abdominal exam: Present: soft, tenderness (epigastric tenderness to palpation.), normal bowel sounds - Extremities Exam Extremities exam: Present: normal inspection - Back Exam Back exam: Present: normal inspection - Neurological Exam Neurological exam: Present: alert, oriented X3 - Psychiatric Psychiatric exam: Present: normal affect, normal mood - Skin Skin exam: Present: warm, dry, intact, normal color. Absent: rash ED Course Vital Signs 04/12/18 04/12/18 04/12/18 07:33 08:59 09:37 Temperature 99.1 F Pulse Rate 68 Respiratory 16 Rate Blood Pressure 161/81 O2 Sat by Pulse 99 97 Oximetry 04/12/18 04/12/18 04/12/18 09:41 10:00 10:30 Temperature Pulse Rate 62 60 Respiratory 15 17 Rate Blood Pressure 193/109 193/109 O2 Sat by Pulse 98 97 Oximetry 04/12/18 04/12/18 04/12/18 11:00 11:30 12:00 Temperature Pulse Rate Respiratory 21 13 18 Rate Blood Pressure 150/89 157/86 157/86 O2 Sat by Pulse 98 98 Oximetry 04/12/18 04/12/18 04/12/18 12:30 13:00 13:30 Temperature Pulse Rate 87 Respiratory 18 13 18 Rate Blood Pressure 177/101 187/97 198/95 O2 Sat by Pulse 95 96 97 Oximetry 04/12/18 04/12/18 14:00 14:30 Temperature Pulse Rate Respiratory 21 13 Rate Blood Pressure 198/95 198/95 O2 Sat by Pulse 92 95 Oximetry - Reevaluation(s) Reevaluation #1: All labs reviewed. Labs and results discussed with patient. Patient admitted to the hospitalist service. Patient agrees with plan of care and admission. 04/12/18 09:31 - Consultations Consultation #1: 04/12/18 09:31 Hospital was consulted for admission. Hospitalist to admit patient. Bridging orders are placed XAVIER score - Xavier Score Age > 65: (0) No Aspirin use within the Past 7 Days: (0) No 3 or more CAD Risk Factors: (0) No 2 or more Angina events in past 24 hrs: (1) Yes Known CAD with more than 50% Stenosis: (0) No Elevated Cardiac Markers: (0) No ST Deviation Greater than 0.5mm: (0) No XAVIER Score: 1 ED Medical Decision Making - Lab Data Result diagrams: 04/12/18 07:51 04/12/18 07:51 - EKG Data -: EKG Interpreted by Dc EKG shows normal: sinus rhythm, axis, intervals, QRS complexes, ST-T waves - EKG Data Interpretation: LV[facility] - Radiology Data Radiology results: report reviewed CHEST 2 VIEWS INDICATION: Chest pain. COMPARISON: 11/18/2016 imaging. FINDINGS: Frontal and lateral chest radiographs demonstrate right hemidiaphragm approximately 3 cm higher than the left. Borderline/mild cardiomegaly. Normal mediastinal and hilar contours. Mild horizontal right mid lung perihilar atelectasis or scarring, described on prior CT. Otherwise clear lungs without pleural effusions or CHF. Multiple upper to mid abdominal surgical clips/densities again noted. Intact bones. CONCLUSION: No acute significant chest process with various other incidental findings, as above. Thank you for the opportunity to participate in this patient's care. Transcribed By: RS Dictated By: JOY GATES MD Electronically Authenticated By: JOY GATES MD Signed Date/Time: 04/12/18 0841 - Medical Decision Making Patient is a 42-year-old female presents to [facility] with 2 complaints. Patient complains of chest pain and epigastric pain and nausea. Patient admitted to the hospitalist service for further evaluation treatment. Patient's initial EKG is negative. Patient's chest x-ray is negative. Patient's abdominal x-rays negative. Epigastric findings consistent with gastritis. Patient was admitted to rule out ACS and any coronary conditions. Patient has significant family history. This has uncontrolled blood pressure. Patient's initial cardiac workup was negative. - Differential Diagnosis acs. cp , gastritis. htn Critical Care Time: Yes Critical care attestation.: If time is entered above; I have spent that time in minutes in the direct care of this critically ill patient, excluding procedure time. Critical Care Time: 35 minutes for cc time ED Disposition Clinical Impression: Epigastric pain Chest pain Qualifiers: Chest pain type: unspecified Qualified Code(s): R07.9 - Chest pain, unspecified Gastritis Qualifiers: Gastritis type: unspecified gastritis Chronicity: acute Gastritis bleeding: without bleeding Qualified Code(s): K29.00 - Acute gastritis without bleeding Hypertension Qualifiers: Hypertension type: essential hypertension Qualified Code(s): I10 - Essential (primary) hypertension Nausea & vomiting Qualifiers: Vomiting type: unspecified Vomiting Intractability: non-intractable Qualified Code(s): R11.2 - Nausea with vomiting, unspecified Disposition: -09 OP ADMIT IP TO THIS HOSP Is pt being admited?: Yes Does the pt Need Aspirin: Yes Condition: Serious Time of Disposition: 09:36
[2018-04-12] MEDS: ASPIRIN PO SCH (09:49)
--- NOTE | 2018-04-12 09:57 | XRay Report ---
ABDOMINAL RADIOGRAPHS INDICATION: Abdominal pain. COMPARISON: 11/18/2016. FINDINGS: Supine and upright abdominal radiographs, 3 images, suggest overall paucity of bowel gas with nonobstructive pattern, where seen. No focal suspicious calcifications, pneumatosis or pneumoperitoneum. Multiple surgical clips again noted in this patient with prior cholecystectomy and pancreatic head removal. Hepatomegaly again suspected with right hepatic lobe craniocaudal extent approximately [address] Right hemidiaphragm again approximately 4 cm higher than the left. Mild cardiomegaly. Prominent left-sided osteophyte at T9-T10. CONCLUSION: No definite acute abdominal radiographic abnormality in this patient with overall paucity of bowel gas and various other stable findings, including postsurgical changes, mildly elevated right hemidiaphragm, mild cardiomegaly and mild to moderate hepatomegaly, as described. Please correlate. Thank you for the opportunity to participate in this patient's care.
--- NOTE | 2018-04-12 11:38 | History and Physical Report ---
History of Present Illness Date of examination: 04/12/18 Date of admission: 04/12/18 09:45 Chief complaint: chest pains History of present illness: Patient is a 42 yo woman with a history of hypertension, ventral hernia repair s/p mesh repair 2008 at [facility], ovarian cyst, right breast cyst, arthritis who presents to [facility] ED with substernal severe, constant chest pains described as a pressure sensation with right hand tingling associated with epigastric abd pain, n/v that started 2 days ago. There is no aggravating or relieving factors to the chest pains. The epigastric pains and N/V worse with eating. She had similar chest pains in 2017. PMH: as hpi PSH: mesh repair, cholecystectomy, tubal ligation, partial pancreatectomy SH: ex tobocco smoker, quit 8 months ago, no alcohol/drug abuse FH: Mother had heart attack age 44, father had stroke recently ROS: Constitutional: denies: fever ENT: denies: throat or neck pain Respiratory: + cough, shortness of breath Cardiovascular: +chest pain Endocrine: denies unexplained weight loss or gain Gastrointestinal: +abdominal pain, nausea Genitourinary: denies: dysuria Rectal: denies no incontinence, no bleeding, no itching, no discharge Musculoskeletal: denies swelling, myaglia, muscle weakness Skin: denies: rash Neurological: no severe headache Hematological/Lymphatic: denies: easy bleeding or easy bruising Allergic/Immunologic: no urticaria, no allergic rhinitis, no anaphylaxis Psych: denies sadness or hopelessness, SI/HI Medications and Allergies Allergies Allergy/AdvReac Type Severity Reaction Status Date / Time No Known Allergies Allergy Unverified 11/18/16 15:24 Home Medications Medication Instructions Recorded Confirmed Last Taken Type Aspirin [Adult Aspirin] 81 mg PO DAILY 04/12/18 04/12/18 04/12/18 History hydrALAZINE [Apresoline TAB] 10 mg PO QDAY 04/12/18 04/12/18 04/12/18 History Active Meds: Active Medications Aspirin (Aspirin) 325 mg PO QDAY SEAN Last Admin: 04/12/18 09:49 Dose: 325 mg Documented by: Exam - Physical Exam Narrative exam: Gen: WDWN, NAD, Awake, Alert, Orientated x 3, bmi 39.9 HEENT: NCAT, EOMI, PERRL, OP Clear Neck: supple, no adenopathy, no thyromegaly, no JVD CVS/Heart: RRR, normal S1S2, pulses present bilaterally Chest/Lungs: CTA B, Symmetrical chest expansion, good air entry bilaterally, substernal reproducible chest wall tenderness GI/Abdomen: soft, epigastric tendernes, good bowel sounds, no guarding or rebound /Bladder: no suprapubic tenderness, no CVA or paraspinal tenderness Extermity/Skin: no c/c/e, no obvious rash MSK: FROM x 4 Neuro: CN 2-12 grossly intact, no new focal deficits Psych: calm - Constitutional Vitals: Temp Pulse Resp BP Pulse Ox 99.1 F 60 21 150/89 98 04/12/18 07:33 04/12/18 10:00 04/12/18 11:00 04/12/18 11:00 04/12/18 11:00 Results - Labs CBC & Chem 7: 04/12/18 07:51 04/12/18 07:51 Labs: Abnormal lab results 04/12/18 04/12/18 04/12/18 Range/Units 07:51 07:51 08:45 Seg Neutrophils % 79.1 H (40.0-70.0) % Potassium 3.5 L (3.6-5.0) mmol/L BUN 5 L (7-17) mg/dL Creatinine 0.5 L (0.7-1.2) mg/dL Glucose 131 H (65-100) mg/dL Lipase 8 L (13-60) units/L Assessment and Plan Patient is a 42 yo woman with a history of hypertension, ventral hernia repair s/p mesh repair 2008 at [facility], ovarian cyst, right breast cyst who presents to [facility] ED with substernal severe, constant chest pains described as a pressure sensation with right hand tingling associated with epigastric abd pain, n/v that started 2 days ago. There is no aggravating or relieving factors to the chest pains. The epigastric pains and N/V worse with eating. She had similar chest pains in 2017. * Abd XR 2v CONCLUSION: No definite acute abdominal radiographic abnormality in this patient with overall paucity of bowel gas and various other stable findings, including postsurgical changes, mildly elevated right hemidiaphragm, mild cardiomegaly and mild to moderate hepatomegaly, as described. Please correlate. * 2v CXR CONCLUSION: No acute significant chest process with various other incidental findings, as above. -Chest pains, atypical appears related to GERD/GI related but high risk factor as mother had heart attack at age 44: serial cardiac Troponin, stress test -Epigastric abd pains with N/V: treat with antiemetics, ppi, reviewed xray -Hypokalemia: replace and recheck bmp -Hyperglycemia, mild 131: check a1c -Hypertension: low salt diet -Obesity: peer financial counselor on lifestyle modifications -DVT prophylaxis: scd -GI prophylaxis: ppi full code
[2018-04-12] MEDS ORDERED: TYLENOL PO PRN (11:44)
[2018-04-12] MEDS ORDERED: ZOFRAN IV PRN (11:44)
[2018-04-12] MEDS: PROTONIX PO SCH (11:58)
[2018-04-12] MEDS ORDERED: MORPHINE ONE (12:45)
[2018-04-12] MEDS: MORPHINE IV PRN ×2 (12:45→17:36)
[2018-04-12 13:40] LABS: Creatine Kinase MB 1.4 ng/mL (0.0-4.0)
[2018-04-12] MEDS ORDERED: NORMODYNE IV PRN (14:29)
[2018-04-12 19:11] LABS: Creatine Kinase MB 1.5 ng/mL (0.0-4.0)
[2018-04-13] MEDS: MORPHINE IV PRN ×4 (00:42→21:39)
[2018-04-13 06:10] LABS: Hemoglobin 13.2 gm/dl (10.1-14.3); Mean Corpuscular HGB Conc 33 % (30-34); Mean Corpuscular Hemoglobin 29 pg (28-32); Mean Corpuscular Volume 86 fl (79-97); Platelet Count 255 K/mm3 (140-440); Red Blood Count 4.63 M/mm3 (3.65-5.03); Red Cell Distribution Width 13.6 % (13.2-15.2)
[2018-04-13 06:18] LABS: BUN/Creatinine Ratio 13; Blood Urea Nitrogen 8 mg/dL (7-17); Calcium 8.9 mg/dL (8.4-10.2); Chol/HDL Ratio 2.92 %; HDL Cholesterol 42 mg/dL (40-59); Hemolysis Index 3; LDL Cholesterol,Direct 75 mg/dL (50-130)
[2018-04-13] MEDS ORDERED: LEXISCAN IV ONE ×2 (09:12→09:13)
[2018-04-13] MEDS: PROTONIX PO SCH (11:17)
[2018-04-13] MEDS: ASPIRIN PO SCH (11:17)
[2018-04-13] MEDS: HEPARIN SUB-Q SCH ×2 (11:17→21:38)
[2018-04-13] MEDS: APRESOLINE PO SCH (11:17)
--- NOTE | 2018-04-13 14:17 | Discharge Summary ---
Providers - Providers Date of Admission: 04/12/18 09:45 Date of discharge: 04/14/18 Attending physician: ANDERSON VELÁZQUEZ Primary care physician: CANDY WRAPPING MACHINE OPERATOR Hospitalization Condition: Stable Hospital course: Patient is a 42 yo woman with a history of hypertension, ventral hernia repair s/p mesh repair 2009 at [facility], ovarian cyst, right breast cyst who presents to [facility] ED with substernal severe, constant chest pains described as a pressure sensation with right hand tingling associated with epigastric abd pain, n/v that started 2 days ago. There is no aggravating or relieving factors to the chest pains. The epigastric pains and N/V worse with eating. She had similar chest pains in 2017. * Abd XR 2v CONCLUSION: No definite acute abdominal radiographic abnormality in this patient with overall paucity of bowel gas and various other stable findings, including postsurgical changes, mildly elevated right hemidiaphragm, mild cardiomegaly and mild to moderate hepatomegaly, as described. Please correlate. * 2v CXR CONCLUSION: No acute significant chest process with various other incidental findings, as above. -Chest pains, atypical appears related to GERD/GI related but high risk factor as mother had heart attack at age 44: d/c if stress test negative -Epigastric abd pains with N/V: treat with antiemetics, ppi, reviewed xray -Hypokalemia: replace and recheck bmp -Hyperglycemia, mild 131: check a1c -Hypertension: low salt diet, increased her home hydralazine to TID -Obesity: apprise counselor on lifestyle modifications -DVT prophylaxis: scd -GI prophylaxis: ppi full code D/c if EGD negative and cleared by gI Disposition: DC-01 TO HOME OR SELFCARE Time spent for discharge: 35 minutes Core Measure Documentation - Palliative Care Palliative Care/ Comfort Measures: Not Applicable - Core Measures Any of the following diagnoses?: none - VTE Discharge Requirements Deep Vein Thrombosis/Pulmonary Embolism Present on Admission: No Has pt received <5 days of overlap therapy or INR<2.0: No Anticoagulant overlap therapy prescribed at discharge: No Contraindication No Overlap Therapy order at DC: Not Indicated Exam - Physical Exam Narrative exam: Gen: WDWN, NAD, Awake, Alert, Orientated x 3, bmi 39.9 HEENT: NCAT, EOMI, PERRL, OP Clear Neck: supple, no adenopathy, no thyromegaly, no JVD CVS/Heart: RRR, normal S1S2, pulses present bilaterally Chest/Lungs: CTA B, Symmetrical chest expansion, good air entry bilaterally, substernal reproducible chest wall tenderness GI/Abdomen: soft, epigastric tendernes, good bowel sounds, no guarding or rebound /Bladder: no suprapubic tenderness, no CVA or paraspinal tenderness Extermity/Skin: no c/c/e, no obvious rash MSK: FROM x 4 Neuro: CN 2-12 grossly intact, no new focal deficits Psych: calm - Constitutional Vitals: Temp Pulse Resp BP Pulse Ox 98.5 F 57 L 18 170/78 97 04/13/18 11:40 04/13/18 11:40 04/13/18 11:40 04/13/18 11:40 04/13/18 11:40 Plan Activity: other (no strenous activity unti cleared by PCP) Diet: low salt, advance as tolerated Additional Instructions: If you have anymore chest pain/epigastric pains please go to [facility] to get the mesh evaluated (where is was placed). Follow up with: PRIMARY CARE, [Primary Care Provider] - 7 Days RENO KIRBY MD [Staff Physician] - 7 Days Prescriptions: hydrALAZINE [Apresoline TAB] 10 mg PO TID #90 tablet Pantoprazole [Protonix TAB] 40 mg PO QDAY 14 Days #7 tablet
[2018-04-13] MEDS ORDERED: POTASSIUM CHLORIDE PO ONE (14:30)
--- NOTE | 2018-04-13 18:48 | Progress Note ---
Assessment and Plan Assessment and plan: Patient is a 42 yo woman with a history of hypertension, ventral hernia repair s/p mesh repair 2009 at [facility], ovarian cyst, right breast cyst who presents to [facility] ED with substernal severe, constant chest pains described as a pressure sensation with right hand tingling associated with epigastric abd pain, n/v that started 2 days ago. There is no aggravating or relieving factors to the chest pains. The epigastric pains and N/V worse with eating. She had similar chest pains in 2017. PCP at [facility] * Abd XR 2v CONCLUSION: No definite acute abdominal radiographic abnormality in this patient with overall paucity of bowel gas and various other stable findings, including postsurgical changes, mildly elevated right hemidiaphragm, mild cardiomegaly and mild to moderate hepatomegaly, as described. Please correlate. * 2v CXR CONCLUSION: No acute significant chest process with various other incidental findings, as above. -Chest pains, atypical appears related to GERD/GI related but high risk factor as mother had heart attack at age 44: serial cardiac Troponin, stress test -Epigastric abd pains with N/V: treat with antiemetics, ppi, reviewed xray -Hypokalemia: replace and recheck bmp -Hyperglycemia, mild 131: check a1c -Hypertension: low salt diet -Obesity: counseling department chair on lifestyle modifications -DVT prophylaxis: scd -GI prophylaxis: ppi full code stress test negative, patient c/o active chest pains during the stress test and stress test was totally negative, d/w Dr. ROE Farley, not cardiac recommends GI evaluation. So, I spoke with Dr. Lemon, ABNER tomorrow, make npo after midnight. d/w patient History Interval history: Patient was seen and examined. Follow-up on current diagnosis of chest pains/epigastric pains, still present. Overnight uneventful. Patient denies any shortness breath, nausea/vomiting or severe headaches. Imaging, nursing note, chart, labs and old chart reviewed. Discussed with patient. Hospitalist Physical - Physical exam Narrative exam: Gen: WDWN, NAD, Awake, Alert, Orientated x 3, bmi 39.9 HEENT: NCAT, EOMI, PERRL, OP Clear Neck: supple, no adenopathy, no thyromegaly, no JVD CVS/Heart: RRR, normal S1S2, pulses present bilaterally Chest/Lungs: CTA B, Symmetrical chest expansion, good air entry bilaterally, substernal reproducible chest wall tenderness GI/Abdomen: soft, epigastric tendernes, good bowel sounds, no guarding or rebound /Bladder: no suprapubic tenderness, no CVA or paraspinal tenderness Extermity/Skin: no c/c/e, no obvious rash MSK: FROM x 4 Neuro: CN 2-12 grossly intact, no new focal deficits Psych: calm - Constitutional Vitals: Temp Pulse Resp BP Pulse Ox 98.3 F 67 20 137/78 95 04/13/18 17:07 04/13/18 17:07 04/13/18 17:07 04/13/18 17:07 04/13/18 17:07 Results - Labs CBC & Chem 7: 04/13/18 05:03 04/13/18 05:03 Labs: Laboratory Last Values WBC 7.0 K/mm3 (4.5-11.0) 04/13/18 05:03 RBC 4.63 M/mm3 (3.65-5.03) 04/13/18 05:03 Hgb 13.2 gm/dl (10.1-14.3) 04/13/18 05:03 Hct 40.0 % (30.3-42.9) 04/13/18 05:03 MCV 86 fl (79-97) 04/13/18 05:03 MCH 29 pg (28-32) 04/13/18 05:03 MCHC 33 % (30-34) 04/13/18 05:03 RDW 13.6 % (13.2-15.2) 04/13/18 05:03 Plt Count 255 K/mm3 (140-440) 04/13/18 05:03 Lymph % (Auto) 17.5 % (13.4-35.0) 04/12/18 07:51 [place]go % (Auto) 3.0 % (0.0-7.3) 04/12/18 07:51 Eos % (Auto) 0.0 % (0.0-4.3) 04/12/18 07:51 Baso % (Auto) 0.4 % (0.0-1.8) 04/12/18 07:51 Lymph # 1.3 K/mm3 (1.2-5.4) 04/12/18 07:51 [place]go # 0.2 K/mm3 (0.0-0.8) 04/12/18 07:51 Eos # 0.0 K/mm3 (0.0-0.4) 04/12/18 07:51 Baso # 0.0 K/mm3 (0.0-0.1) 04/12/18 07:51 Seg Neutrophils % 79.1 % (40.0-70.0) H 04/12/18 07:51 Seg Neutrophils # 6.0 K/mm3 (1.8-7.7) 04/12/18 07:51 Sodium 143 mmol/L (137-145) 04/13/18 05:03 Potassium 3.0 mmol/L (3.6-5.0) L 04/13/18 05:03 Chloride 101.1 mmol/L (98-107) 04/13/18 05:03 Carbon Dioxide 29 mmol/L (22-30) 04/13/18 05:03 Anion Gap 16 mmol/L 04/13/18 05:03 BUN 8 mg/dL (7-17) 04/13/18 05:03 Creatinine 0.6 mg/dL (0.7-1.2) L 04/13/18 05:03 Estimated GFR > 60 ml/min 04/13/18 05:03 BUN/Creatinine Ratio 13 % 04/13/18 05:03 Glucose 92 mg/dL (65-100) 04/13/18 05:03 Hemoglobin A1c 6.0 % (4-6) 04/13/18 05:03 Calcium 8.9 mg/dL (8.4-10.2) 04/13/18 05:03 Total Bilirubin 0.30 mg/dL (0.1-1.2) 04/12/18 08:45 Direct Bilirubin < 0.2 mg/dL (0-0.2) 04/12/18 08:45 Indirect Bilirubin 0.1 mg/dL 04/12/18 08:45 AST 16 units/L (5-40) 04/12/18 08:45 ALT 12 units/L (7-56) 04/12/18 08:45 Alkaline Phosphatase 106 units/L (35-129) 04/12/18 08:45 Total Creatine Kinase 150 units/L (30-135) H 04/12/18 18:42 CK-MB (CK-2) 1.5 ng/mL (0.0-4.0) 04/12/18 18:42 CK-MB (CK-2) Rel Index 1.0 (0-4) 04/12/18 18:42 Troponin T < 0.010 ng/mL (0.00-0.029) 04/12/18 18:42 Total Protein 7.7 g/dL (6.3-8.2) 04/12/18 08:45 Albumin 4.8 g/dL (3.9-5) 04/12/18 08:45 Albumin/Globulin Ratio 1.7 % 04/12/18 08:45 Triglycerides 51 mg/dL (2-149) 04/13/18 05:03 Cholesterol 123 mg/dL (50-199) 04/13/18 05:03 LDL Cholesterol Direct 75 mg/dL (50-130) 04/13/18 05:03 HDL Cholesterol 42 mg/dL (40-59) 04/13/18 05:03 Cholesterol/HDL Ratio 2.92 % 04/13/18 05:03 Lipase 8 units/L (13-60) L 04/12/18 08:45 TSH 0.674 mlU/mL (0.270-4.200) 04/13/18 05:03 HCG, Qual Negative (Negative) 04/12/18 08:45
[2018-04-13 19:44] LABS: BUN/Creatinine Ratio 14; Blood Urea Nitrogen 10 mg/dL (7-17); Calcium 8.8 mg/dL (8.4-10.2); Hemolysis Index 5
--- NOTE | 2018-04-13 20:43 | Treadmill Report ---
NUCLEAR STRESS TEST REPORT The patient is brought to the Cardiology lab and a Lexiscan stress test is performed. The patient tolerated the procedure well with no significant arrhythmias or chest pain, significant ischemic changes on the EKG. Post-stress nuclear images reveal fairly homogeneous distribution of the isotope with no significant reversibility noted during rest to indicate ischemia. Accompanying gated study shows good systolic function with a calculated ejection fraction of 67%. IMPRESSION: 1. Nuclear stress test is negative for significant ischemia. 2. Good systolic function is noted with a calculated ejection fraction of 67%. JOB# [id number]
[2018-04-14] MEDS: MORPHINE IV PRN ×4 (01:07→21:41)
[2018-04-14 06:54] LABS: Hematocrit 39.9 % (30.3-42.9); Hemoglobin 13.2 gm/dl (10.1-14.3); Mean Corpuscular HGB Conc 33 % (30-34); Mean Corpuscular Hemoglobin 29 pg (28-32); Mean Corpuscular Volume 86 fl (79-97); Platelet Count 259 K/mm3 (140-440); Red Blood Count 4.63 M/mm3 (3.65-5.03); Red Cell Distribution Width 13.5 % (13.2-15.2)
[2018-04-14 07:13] LABS: BUN/Creatinine Ratio 15; Blood Urea Nitrogen 9 mg/dL (7-17); Calcium 8.6 mg/dL (8.4-10.2); Hemolysis Index 6
--- NOTE | 2018-04-14 09:24 | Gastroenterology Consultation ---
Addendum entered and electronically signed by RENO KIRBY MD 04/14/18 15:29: pt seen and examined, chart reviewed, consult below reviewed - pt now with epigastric/chest pain unclear etiology - denies other GI complaints vss p.e.: nad abd: soft _ EGD today - other rec as outlined below Original Note: History of Present Illness - Reason for Consult Consult date: 04/14/18 epigastric pain, N/V Requesting physician: ANDERSON VELÁZQUEZ - History of Present Illness Patient is a 42 y/o female with PMH of HTN and a choledochal cyst repair at [place] in 2008 who presented to ED with c/o chest pain with cardiac workup (EKG, cardiac enzymes, chest x-ray, and stress test) upon admission negative to which GI has been consulted. This morning patient was resting in bed w/o acute distress. She reports intermittent substernal CP x approximately 2 months described as a pressure, lasting in duration for 45mins to 1 hour after onset and then resolving. CP is exacerbated with exertion with associated SOB and is improved with rest. She states that her CP became worse a few days ago after an episode of N/V which has now resolved. Denies fever, wt loss, abd pain, dysphagia, odynophagia, heartburn/regurgitation, signs of bleeding, or lower GI symptoms. No NSAID use or hx of PUD. No prior EGD. No Fhx of GI cancers. Abdominal x-ray showed post surgical changes as above but no acute process. WBC, H/H, LFTs, and Lipase WNL. Past History Past Medical History: hypertension, other (obesity, choledochal cyst) Past Surgical History: appendectomy, Other (choledochal cyst repair at [place] in 2008 (cholecystectomy, pancreatic head removal)) Social history: denies: smoking, alcohol abuse Family history: CAD Medications and Allergies Allergies Allergy/AdvReac Type Severity Reaction Status Date / Time No Known Allergies Allergy Unverified 11/18/16 15:24 Home Medications Medication Instructions Recorded Confirmed Last Taken Type Acetaminophen [Acetaminophen TAB] 650 mg PO Q6H PRN #15 tablet 04/13/18 Unknown Rx Pantoprazole [Protonix TAB] 40 mg PO QDAY 14 Days #7 tablet 04/13/18 Unknown Rx hydrALAZINE [Apresoline TAB] 10 mg PO TID #90 tablet 04/13/18 Unknown Rx Active Meds: Active Medications Acetaminophen (Tylenol) 650 mg PO Q6H PRN PRN Reason: Non Cardiac Pain or Temp>100.5 Aspirin (Aspirin) 325 mg PO QDAY [facility] Last Admin: 04/13/18 11:17 Dose: 325 mg Documented by: Heparin Sodium (Porcine) (Heparin) 5,000 unit SUB-Q Q12HR [facility] Last Admin: 04/13/18 21:38 Dose: 5,000 unit Documented by: Hydralazine HCl (Apresoline) 10 mg PO QDAY [facility] Last Admin: 04/13/18 11:17 Dose: 10 mg Documented by: Labetalol HCl (Normodyne) 10 mg IV Q4H PRN PRN Reason: Blood Pressure Morphine Sulfate (Morphine) 2 mg IV Q4H PRN PRN Reason: Pain , Severe (7-10) Last Admin: 04/14/18 05:55 Dose: 2 mg Documented by: Ondansetron HCl (Zofran) 4 mg IV Q4H PRN PRN Reason: Nausea And Vomiting medications reviewed/updated as required Review of Systems - Review of Systems All systems: negative Cardiovascular: chest pain Gastrointestinal: nausea, vomiting Exam - Constitutional Vital Signs: Temp Pulse Resp BP Pulse Ox 98.0 F 57 L 18 148/87 96 04/14/18 05:12 04/14/18 05:12 04/14/18 05:12 04/14/18 05:12 04/14/18 05:12 General appearance: no acute distress, obese - EENT Eyes: PERRL, EOM intact ENT: hearing intact - Respiratory Respiratory: bilateral: CTA - Cardiovascular Rhythm: regular Heart Sounds: Present: S1 & S2 - Gastrointestinal General gastrointestinal: Present: soft, non-tender, non-distended, normal bowel sounds, other (obese, midline scar from prior surgery) - Neurologic Neurological: alert and oriented x3 - Labs CBC & Chem 7: 04/14/18 05:42 04/14/18 05:42 Lab Results: Laboratory Results - last 24 hr 04/13/18 04/14/18 04/14/18 18:03 05:42 05:42 WBC 6.0 RBC 4.63 Hgb 13.2 Hct 39.9 MCV 86 MCH 29 MCHC 33 RDW 13.5 Plt Count 259 Sodium 140 142 Potassium 3.6 3.2 L Chloride 100.7 102.0 Carbon Dioxide 26 27 Anion Gap 17 16 BUN 10 9 Creatinine 0.7 0.6 L Estimated GFR > 60 > 60 BUN/Creatinine Ratio 14 15 Glucose 95 95 Calcium 8.8 8.6 Assessment and Plan 1.atypical chest pain 2.N/V- resolved 3.H/o choledochal cyst repair (at [place] in 2008) -cardiac workup negative (EKG, cardiac enzymes, chest x-ray, and stress test) -abd x-ray showed post surgical changes but no acute process -afebrile -WBC, H/H, LFTs, and lipase WNL -etiology unclear- possible esophagitis vs other -will schedule for EGD today for further evaluation -Keep NPO -continue PPI -continue supportive care -will follow
[2018-04-14] MEDS: APRESOLINE PO SCH (09:28)
[2018-04-14] MEDS: HEPARIN SUB-Q SCH ×2 (09:29→21:40)
[2018-04-14] MEDS: ASPIRIN PO SCH (11:49)
[2018-04-14] MEDS: PROTONIX IV SCH ×2 (11:49→21:39)
--- NOTE | 2018-04-14 13:42 | Progress Note ---
Assessment and Plan Assessment and plan: Patient is a 42 yo woman with a history of hypertension, ventral hernia repair s/p mesh repair 2009 at [facility], ovarian cyst, right breast cyst who presents to [facility] ED with substernal severe, constant chest pains described as a pressure sensation with right hand tingling associated with epigastric abd pain, n/v that started 2 days ago. There is no aggravating or relieving factors to the chest pains. The epigastric pains and N/V worse with eating. She had similar chest pains in 2017. PCP at [facility] * Abd XR 2v CONCLUSION: No definite acute abdominal radiographic abnormality in this patient with overall paucity of bowel gas and various other stable findings, including postsurgical changes, mildly elevated right hemidiaphragm, mild cardiomegaly and mild to moderate hepatomegaly, as described. Please correlate. * 2v CXR CONCLUSION: No acute significant chest process with various other incidental findings, as above. -Chest pains, atypical appears related to GERD/GI related but high risk factor as mother had heart attack at age 44: serial cardiac Troponin, stress test -Epigastric abd pains with N/V: treat with antiemetics, ppi, reviewed xray -Hypokalemia: replace and recheck bmp -Hyperglycemia, mild 131: check a1c -Hypertension: low salt diet -Obesity: patent counsel on lifestyle modifications -DVT prophylaxis: scd -GI prophylaxis: ppi full code stress test negative, patient c/o active chest pains during the stress test and stress test was totally negative, d/w Dr. ROE Farley, not cardiac recommends GI evaluation. So, I spoke with Dr. Lemon, EGD tomorrow, make npo after midnight. d/w patient EGD pending History Interval history: Patient was seen and examined. Follow-up on current diagnosis of chest pains/epigastric pains, still present. Overnight uneventful. Patient denies any shortness breath, nausea/vomiting or severe headaches. Imaging, nursing note, chart, labs and old chart reviewed. Discussed with patient. Hospitalist Physical - Physical exam Narrative exam: Gen: WDWN, NAD, Awake, Alert, Orientated x 3, bmi 39.9 HEENT: NCAT, EOMI, PERRL, OP Clear Neck: supple, no adenopathy, no thyromegaly, no JVD CVS/Heart: RRR, normal S1S2, pulses present bilaterally Chest/Lungs: CTA B, Symmetrical chest expansion, good air entry bilaterally, substernal reproducible chest wall tenderness GI/Abdomen: soft, epigastric tendernes, good bowel sounds, no guarding or rebound /Bladder: no suprapubic tenderness, no CVA or paraspinal tenderness Extermity/Skin: no c/c/e, no obvious rash MSK: FROM x 4 Neuro: CN 2-12 grossly intact, no new focal deficits Psych: calm - Constitutional Vitals: Temp Pulse Resp BP Pulse Ox 98.0 F 57 L 16 134/92 99 04/14/18 11:48 04/14/18 11:48 04/14/18 11:48 04/14/18 11:48 04/14/18 11:48 Results - Labs CBC & Chem 7: 04/14/18 05:42 04/14/18 05:42 Labs: Laboratory Last Values WBC 6.0 K/mm3 (4.5-11.0) 04/14/18 05:42 RBC 4.63 M/mm3 (3.65-5.03) 04/14/18 05:42 Hgb 13.2 gm/dl (10.1-14.3) 04/14/18 05:42 Hct 39.9 % (30.3-42.9) 04/14/18 05:42 MCV 86 fl (79-97) 04/14/18 05:42 MCH 29 pg (28-32) 04/14/18 05:42 MCHC 33 % (30-34) 04/14/18 05:42 RDW 13.5 % (13.2-15.2) 04/14/18 05:42 Plt Count 259 K/mm3 (140-440) 04/14/18 05:42 Lymph % (Auto) 17.5 % (13.4-35.0) 04/12/18 07:51 [place] % (Auto) 3.0 % (0.0-7.3) 04/12/18 07:51 Eos % (Auto) 0.0 % (0.0-4.3) 04/12/18 07:51 Baso % (Auto) 0.4 % (0.0-1.8) 04/12/18 07:51 Lymph # 1.3 K/mm3 (1.2-5.4) 04/12/18 07:51 [place] # 0.2 K/mm3 (0.0-0.8) 04/12/18 07:51 Eos # 0.0 K/mm3 (0.0-0.4) 04/12/18 07:51 Baso # 0.0 K/mm3 (0.0-0.1) 04/12/18 07:51 Seg Neutrophils % 79.1 % (40.0-70.0) H 04/12/18 07:51 Seg Neutrophils # 6.0 K/mm3 (1.8-7.7) 04/12/18 07:51 Sodium 142 mmol/L (137-145) 04/14/18 05:42 Potassium 3.2 mmol/L (3.6-5.0) L 04/14/18 05:42 Chloride 102.0 mmol/L (98-107) 04/14/18 05:42 Carbon Dioxide 27 mmol/L (22-30) 04/14/18 05:42 Anion Gap 16 mmol/L 04/14/18 05:42 BUN 9 mg/dL (7-17) 04/14/18 05:42 Creatinine 0.6 mg/dL (0.7-1.2) L 04/14/18 05:42 Estimated GFR > 60 ml/min 04/14/18 05:42 BUN/Creatinine Ratio 15 % 04/14/18 05:42 Glucose 95 mg/dL (65-100) 04/14/18 05:42 Hemoglobin A1c 6.0 % (4-6) 04/13/18 05:03 Calcium 8.6 mg/dL (8.4-10.2) 04/14/18 05:42 Total Bilirubin 0.30 mg/dL (0.1-1.2) 04/12/18 08:45 Direct Bilirubin < 0.2 mg/dL (0-0.2) 04/12/18 08:45 Indirect Bilirubin 0.1 mg/dL 04/12/18 08:45 AST 16 units/L (5-40) 04/12/18 08:45 ALT 12 units/L (7-56) 04/12/18 08:45 Alkaline Phosphatase 106 units/L (35-129) 04/12/18 08:45 Total Creatine Kinase 150 units/L (30-135) H 04/12/18 18:42 CK-MB (CK-2) 1.5 ng/mL (0.0-4.0) 04/12/18 18:42 CK-MB (CK-2) Rel Index 1.0 (0-4) 04/12/18 18:42 Troponin T < 0.010 ng/mL (0.00-0.029) 04/12/18 18:42 Total Protein 7.7 g/dL (6.3-8.2) 04/12/18 08:45 Albumin 4.8 g/dL (3.9-5) 04/12/18 08:45 Albumin/Globulin Ratio 1.7 % 04/12/18 08:45 Triglycerides 51 mg/dL (2-149) 04/13/18 05:03 Cholesterol 123 mg/dL (50-199) 04/13/18 05:03 LDL Cholesterol Direct 75 mg/dL (50-130) 04/13/18 05:03 HDL Cholesterol 42 mg/dL (40-59) 04/13/18 05:03 Cholesterol/HDL Ratio 2.92 % 04/13/18 05:03 Lipase 8 units/L (13-60) L 04/12/18 08:45 TSH 0.674 mlU/mL (0.270-4.200) 04/13/18 05:03 HCG, Qual Negative (Negative) 04/12/18 08:45
[2018-04-14] MEDS ORDERED: DIPRIVAN 10 MG/ML IV ONE (15:06)
[2018-04-14] MEDS ORDERED: VERSED ONE (15:06)
--- NOTE | 2018-04-14 15:11 | Anesthesia Day of Surgery ---
Anesthesia Day of Surgery - Day of Surgery Patient Examined: Yes Patient H&P Reviewed: Yes Patient is NPO: Yes Beta Blockers: No Cardiac Clearance: No Pulmonary Clearance: No
--- NOTE | 2018-04-14 15:11 | Anesthesia Consultation ---
Anesthesia Consult and Med Hx Date of service: 04/14/18 - Airway Anesthetic Teeth Evaluation: Good ROM Head & Neck: Adequate Mental/Hyoid Distance: Adequate - Pulmonary Exam CTA: Yes - Cardiac Exam Cardiac Exam: No Murmur - Pre-Operative Health Status ASA Pre-Surgery Classification: ASA3 Proposed Anesthetic Plan: MAC - Pulmonary Hx Asthma: No COPD: No Hx Pneumonia: No - Cardiovascular System Hx Hypertension: Yes - Endocrine Hx End Stage Renal Disease: No Hx Cirrhosis: No Hx Liver Disease: No Hx Insulin Dependent Diabetes: No Hx Non-Insulin Dependent Diabetes: No Hx Thyroid Disease: No Hx Hypothyroidism: No Hx Hyperthyroidism: No - Hematic Hx Anemia: No Hx Sickle Cell Disease: No - Other Systems Hx Alcohol Use: No Hx Substance Use: No Hx Cancer: No Hx Obesity: No
[2018-04-14] MEDS: NACL 0.9% 1000 ML 1,000 ML IV SCH ×2 (15:16→15:18)
[2018-04-14] MEDS ORDERED: XYLOCAINE 2% INFILTRATI ONE (15:22)
--- NOTE | 2018-04-14 15:32 | Post Operative Note ---
Pre-op diagnosis: epigastric pain Post-op diagnosis: same Findings: EGD: hiatal hernia - mild gastritis (bx's) - negative other Procedure: EGD Anesthesia: MAC Surgeon: RENO KIRBY Estimated blood loss: none Pathology: list Specimen disposition: to lab Condition: stable Disposition: floor
--- NOTE | 2018-04-14 17:04 | Operative Report ---
PROCEDURE: EGD with cold biopsy. INDICATION: 1. Epigastric pain. 2. Nausea. MEDICATIONS: Propofol per SALES COMMUNICATIONS MANAGER. COMPLICATIONS: None. DESCRIPTION OF PROCEDURE: The patient brought to procedure suite. The patient had the procedure discussed with her at length. All risks, complications, and benefits discussed, which the patient signed for the procedure performed. The patient was placed in left lateral decubitus position. Mouth block placed in the patient's oral cavity. After adequate sedation medication as above, the scope placed in mouth and brought to the second portion of duodenum. Retroflexion view performed. The patient's vital signs remained stable throughout the procedure. FINDINGS: There was a small hiatal hernia at GE junction 37 cm from the gums. The esophagus otherwise appeared normal. There was mild antral gastritis noted. Biopsy taken to pathology. The remaining stomach otherwise appeared to be normal. The duodenum appeared to be normal. Retroflexion view performed in the stomach showed no other pathology other than noted above. The patient tolerated the procedure well. No complications during the procedure. IMPRESSION: 1. Hiatal hernia. 2. Otherwise, normal esophagus. 3. Gastritis, biopsies performed. 4. Otherwise normal stomach. 5. Normal duodenum. RECOMMENDATIONS: 1. Follow up biopsy results. 2. If H. pylori positive, we will treat. 3. PPI daily. 4. Advance diet. 5. Okay to discharge from GI standpoint, will sign off, call if needed. JOB# [id number] CAB/NTS
[2018-04-14] MEDS ORDERED: TORADOL IV ONE (17:54)
[2018-04-15 01:30] VITALS: BP 141/88
[2018-04-15] MEDS: MORPHINE IV PRN (02:06)
[2018-04-15] MEDS ORDERED: MOTRIN PO PRN (09:58)
[2018-04-15] MEDS ORDERED: COLCHICINE PO SCH (10:00)
--- NOTE | 2018-04-15 10:02 | Consultation ---
History of Present Illness Consult date: 04/15/18 Requesting physician: ANDERSON VELÁZQUEZ Consult reason: chest pain History of present illness: This is a 42-year-old female with history of hypertension and family history of premature CAD obesity smoker quit 8 months ago spent having for several months on and off chest discomfort midsternal nonradiating worsening when laid down flat also has some shortness of breath with exertion at times but different from his chest pain patient has been taking high-dose anti- inflammatories for several weeks came to the hospital for evaluation stress test revealed no significant ischemia were normal in function EGD revealed mild gastritis patient has no nausea no vomiting no seizures no syncope no melena Past History Past Medical History: hypertension, other (obesity, choledochal cyst) Past Surgical History: appendectomy, Other (choledochal cyst repair at [place] in 2008 (cholecystectomy, pancreatic head removal)) Social history: denies: smoking (quit 8 months ago), alcohol abuse Family history: CAD Medications and Allergies Allergies Allergy/AdvReac Type Severity Reaction Status Date / Time No Known Allergies Allergy Unverified 11/18/16 15:24 Home Medications Medication Instructions Recorded Confirmed Last Taken Type Acetaminophen [Acetaminophen TAB] 650 mg PO Q6H PRN #15 tablet 04/13/18 Unknown Rx Pantoprazole [Protonix TAB] 40 mg PO QDAY 14 Days #7 tablet 04/13/18 Unknown Rx hydrALAZINE [Apresoline TAB] 10 mg PO TID #90 tablet 04/13/18 Unknown Rx Active Meds: Active Medications Acetaminophen (Tylenol) 650 mg PO Q6H PRN PRN Reason: Non Cardiac Pain or Temp>100.5 Heparin Sodium (Porcine) (Heparin) 5,000 unit SUB-Q Q12HR [facility] Last Admin: 04/14/18 21:40 Dose: 5,000 unit Documented by: Hydralazine HCl (Apresoline) 10 mg PO QDAY [facility] Last Admin: 04/14/18 09:28 Dose: 10 mg Documented by: Sodium Chloride (Nacl 0.9% 1000 Ml) 1,000 mls @ 50 mls/hr IV DIRECT [facility] Last Admin: 04/14/18 15:18 Dose: 50 mls/hr Documented by: Labetalol HCl (Normodyne) 10 mg IV Q4H PRN PRN Reason: Blood Pressure Morphine Sulfate (Morphine) 2 mg IV Q4H PRN PRN Reason: Pain , Severe (7-10) Last Admin: 04/15/18 02:06 Dose: 2 mg Documented by: Ondansetron HCl (Zofran) 4 mg IV Q4H PRN PRN Reason: Nausea And Vomiting Review of Systems All systems: negative (as per hpi) Physical Examination Vital Signs Temp Pulse BP Pulse Ox 99.1 F 68 161/81 99 04/12/18 07:33 04/12/18 07:33 04/12/18 07:33 04/12/18 07:33 General appearance: no acute distress, well-nourished HEENT: Positive: PERRL, Mucus Membranes Moist Neck: Positive: neck supple, trachea midline Cardiac: Positive: Reg Rate and Rhythm, S1/S2. Negative: Audible Murmur Lungs: Positive: clear to auscultation, Normal Breath Sounds Neuro: Positive: Grossly Intact Abdomen: Positive: Soft, Active Bowel Sounds. Negative: Tender, Distended Female genitourinary: deferred Skin: Positive: Clear Incision: Cardiac Cath Site Musculoskeletal: No Pain, Normal Range of Motion Extremities: Present: normal. Absent: edema Results 04/14/18 05:42 04/14/18 05:42 - Imaging and Cardiology Stress echo: other (normal myocardial perfusion no ischemia and normal LV function) EKG interpretations - Telemetry EKG Rhythm: Sinus Bradycardia (sinus bradycardia no ST-T abnormality) Assessment and Plan Chest pain possible GI versus inflammatory Hypertension Morbid obesity Premature family history of CAD Recommend in view of negative stress tests normal troponins chronicity of symptomology will treat for inflammatory cause of chest pain add colchine 06 mg bid and continue anti-inflammatory and PPI patient will monitor symptomology and follow-up in cardiology clinic in 1-2 weeks gave patient number and answered all questions advised if symptoms worsen to return to the hospital
[2018-04-15] MEDS: APRESOLINE PO SCH (11:48)
[2018-04-15] MEDS: HEPARIN SUB-Q SCH (11:48)
--- NOTE | 2018-04-15 12:52 | Discharge Summary ---
Providers - Providers Date of Admission: 04/12/18 09:45 Attending physician: ZAHRAA STEIN MD 04/13/18 18:38 Consult to Physician [CONS] Routine Comment: Consulting Provider: RENO KIRBY Physician Instructions: I notified, just add to his list Reason For Exam: Epigastric pains, n/v, needs EGD 04/14/18 16:23 Consult to Physician [CONS] Routine Comment: Consulting Provider: SRUTHI MURPHY Physician Instructions: Reason For Exam: recurrent chest pains Primary care physician: ESL TUTOR Hospitalization Condition: Stable Pertinent studies: * Abd XR 2v CONCLUSION: No definite acute abdominal radiographic abnormality in this patient with overall paucity of bowel gas and various other stable findings, including postsurgical changes, mildly elevated right hemidiaphragm, mild cardiomegaly and mild to moderate hepatomegaly, as described. Please correlate. * 2v CXR CONCLUSION: No acute significant chest process with various other inc idental findings, as above. Hospital course: Patient is a 42 yo woman who presented with chest pain and epigastric pain. She underwent a stress test that was negative. She also started with an EGD that showed gastritis and has a hernia. She was seen by cardiology who recommended treating her with nonsteroidal anti-inflammatory medications. The patient stated that she had ibuprofen at home and will take that upon going home. She was also given a PPI. Her electrolytes were repleted, she was counseled on lifestyle modification. Diagnoses Chest pain due to gastritis Gastritis Hypokalemia Hypertension Obesity Disposition: DC- TO HOME OR SELFCARE Time spent for discharge: 44 minutes Core Measure Documentation - Palliative Care Palliative Care/ Comfort Measures: Not Applicable - Core Measures Any of the following diagnoses?: none Exam - Constitutional Vitals: Temp Pulse Resp BP Pulse Ox 98.4 F 71 24 141/88 95 04/14/18 23:49 04/14/18 23:49 04/14/18 23:49 04/14/18 23:49 04/14/18 23:49 General appearance: Present: no acute distress, well-nourished - EENT Eyes: Present: PERRL ENT: hearing intact, clear oral mucosa - Neck Neck: Present: supple, normal ROM - Respiratory Respiratory effort: normal Respiratory: bilateral: CTA - Cardiovascular Heart Sounds: Present: S1 & S2. Absent: rub, click - Extremities Extremities: pulses symmetrical, No edema Peripheral Pulses: within normal limits - Abdominal General gastrointestinal: Present: soft, non-tender, non-distended, normal bowel sounds Female genitourinary: Present: normal - Integumentary Integumentary: Present: clear, warm, dry - Musculoskeletal Musculoskeletal: gait normal, strength equal bilaterally - Psychiatric Psychiatric: appropriate mood/affect, intact judgment & insight - Neurologic Neurologic: CNII-XII intact, moves all extremities Plan Follow up with: RENO KIRBY MD [Staff Physician] - 7 Days PRIMARY CARE, [Primary Care Provider] - 7 Days Forms: Work/School Release Form Prescriptions: hydrALAZINE [Apresoline TAB] 10 mg PO TID #90 tablet Pantoprazole [Protonix TAB] 40 mg PO QDAY 14 Days #7 tablet
== END 2018-04-15 11:00 | disposition home or self-care (01) | DRG 392 ==
LOC: ED 07:25 → 4A 09:45 → 3A 14:36
PROVIDERS: ADMIT Internal Medicine; ATTEND Internal Medicine
PROC: 0DB68ZX Excision of Stomach, Via Natural or Artificial Opening Endoscopic, Diagnostic (ICD-10-PCS; principal; 2018-04-14)
DX: K29.70 Gastritis, unspecified, without bleeding (principal); Z68.41 Body mass index [BMI] 40.0-44.9, adult; I10 Essential (primary) hypertension; K44.9 Diaphragmatic hernia without obstruction or gangrene; E87.6 Hypokalemia; I25.10 Atherosclerotic heart disease of native coronary artery without angina pectoris; E66.01 Morbid (severe) obesity due to excess calories; R73.9 Hyperglycemia, unspecified; M19.90 Unspecified osteoarthritis, unspecified site; Z87.891 Personal history of nicotine dependence; Z90.49 Acquired absence of other specified parts of digestive tract; Z82.49 Family history of ischemic heart disease and other diseases of the circulatory system; Z79.899 Other long term (current) drug therapy; Z71.3 Dietary counseling and surveillance; Z98.51 Tubal ligation status; Z90.411 Acquired partial absence of pancreas; Z82.3 Family history of stroke; Z79.82 Long term (current) use of aspirin
CPT/HCPCS: 36415; 71046; 74019; 78452; 80048; 80061; 80076; 82550; 82553; 83036; 83690; 84443; 84484; 84703; 85025; 85027; 87116; 88305; 88342; 93005; 93010; 93017; 96374; 96375; G0378; A9502; C9113; J1644; J1885; J2250; J2270; J2405; J2704; J2785

== ENCOUNTER 2018-08-11 18:17 | Emergency (ER) | payer OTHER ==
[2018-08-11] MEDS ORDERED: ASPIRIN PO ONE (18:32)
--- NOTE | 2018-08-11 18:34 | Emergency Department Report ---
Chief Complaint: Chest Pain Stated Complaint: CHEST PAIN/VOMIT Time Seen by Provider: 08/11/18 18:31 - HPI History of Present Illness: This is a 43 y.o. female that presents to the ER with chest pressure, n/v since 1200 today. PMH - Exam Vital Signs: Vital Signs 08/11/18 18:31 Temperature 98 F Pulse Rate 59 L Respiratory 22 Rate Blood Pressure 215/95 O2 Sat by Pulse 100 Oximetry MSE screening note: Focused history and physical exam performed. Due to findings the following was ordered: Labs, EKG, & CXR ED Disposition for MSE Condition: Stable
[2018-08-11 18:59] LABS: Basophils # (Auto) 0.1 K/mm3 (0.0-0.1); Basophils % (Auto) 1.3 % (0.0-1.8); Eosinophils % (Auto) 0.1 % (0.0-4.3); Hematocrit 39.1 % (30.3-42.9); Hemoglobin 13.4 gm/dl (10.1-14.3); Lymphocytes # (Auto) 1.4 K/mm3 (1.2-5.4); Lymphocytes % (Auto) 21.4 % (13.4-35.0); Mean Corpuscular HGB Conc 34 % (30-34); Mean Corpuscular Volume 87 fl (79-97); Monocytes # (Auto) 0.2 K/mm3 (0.0-0.8); Monocytes % (Auto) 2.9 % (0.0-7.3); Platelet Count 260 K/mm3 (140-440); Red Blood Count 4.48 M/mm3 (3.65-5.03); Red Cell Distribution Width 14.6 % (13.2-15.2)
[2018-08-11 19:07] LABS: BUN/Creatinine Ratio 16; Blood Urea Nitrogen 8 mg/dL (7-17); Calcium 9.3 mg/dL (8.4-10.2); Hemolysis Index 6
--- NOTE | 2018-08-11 19:50 | XRay Report ---
PROCEDURE: XR CHEST 1V AP TECHNIQUE: Frontal portable view of the chest HISTORY: Chest Pain COMPARISONS: Chest x-ray dated April 12, 2018 the report of that study is not available for review at the time of this dictation. FINDINGS: There is prominence of the interstitial markings in both lungs similar in appearance to the previous study. There is a focus of increased density that is somewhat elliptical in shape in the right upper lung fi eld that also appears to have been demonstrated on the previous study. There is no evidence of pneumothorax or pleural fluid collection. The cardiac silhouette is enlarged similar in appearance to the previous study. The thoracic aorta is mildly tortuous. The bony structures are notable for dextrocurvature of the thoracic spine. IMPRESSION: 1. No evidence of an acute pulmonary process. 2. Focus of somewhat elliptical increased density in the right upper lung field that also appears to been demonstrated on the previous study. If this has not been previously evaluated, CT chest would be helpful for further evaluation. 3. Stable enlarged cardiac silhouette. This document is electronically signed by Awilda Cuevas MD., August 11 2018 07:48:41 PM ET
[2018-08-11] MEDS ORDERED: APRESOLINE IV ONE ×2 (20:22→22:48)
[2018-08-11] MEDS ORDERED: ZOFRAN IV ONE ×2 (20:22→21:35)
[2018-08-11] MEDS ORDERED: PROTONIX IV ONE (20:22)
[2018-08-11] MEDS ORDERED: MORPHINE IV ONE (20:22)
--- NOTE | 2018-08-11 20:25 | Emergency Department Report ---
ED Chest Pain HPI - General Chief Complaint: Chest Pain Stated Complaint: CHEST PAIN/VOMIT Time Seen by Provider: 08/11/18 18:31 Source: patient Mode of arrival: Ambulatory Limitations: No Limitations - History of Present Illness Initial Comments: 43-year-old female presents to the emergency department from home with complaint of some midsternal chest discomfort, nausea and vomiting, shortness of breath, that started around noon today. She did not take anything for her symptoms prior to presentation. She denies any primary care physician or admissions consultant. The patient was here in March of last year with similar symptoms and had a negative stress test at that time. The patient presents with extremely elevated blood pressure and denies any history of hypertension but there does appear to be a history and a previous prescription for hydralazine. The patient says that she took that one month worth of medication and then never got a refill. She is a former smoker and says that she quit about 4 or 5 months ago. No recent travel or sick contacts at home. Severity scale (0 -10): 7 - Related Data Previous Rx's Medication Instructions Recorded Last Taken Type Acetaminophen [Acetaminophen TAB] 650 mg PO Q6H PRN #15 tablet 04/13/18 Unknown Rx Pantoprazole [Protonix TAB] 40 mg PO QDAY 14 Days #7 tablet 04/13/18 Unknown Rx hydrALAZINE [Apresoline TAB] 10 mg PO TID #90 tablet 04/13/18 Unknown Rx Ondansetron [Zofran Odt] 4 mg PO Q8HR PRN #15 tab.rapdis 08/12/18 Unknown Rx amLODIPine [Norvasc] 10 mg PO DAILY #30 tab 08/12/18 Unknown Rx Allergies Allergy/AdvReac Type Severity Reaction Status Date / Time No Known Allergies Allergy Verified 08/11/18 18:31 Heart Score - HEART Score History: Slightly suspicious EKG: Non-specific Age: < 45 Risk factors: 1-2 risk factors Troponin: < normal limit HEART Score: 2 - Critical Actions Critical Actions: 0-3 pts:0.9-1.7%risk of adverse cardiac event.Candidate for discharge ED Review of Systems ROS: Stated complaint: CHEST PAIN/VOMIT Other details as noted in HPI Comment: All other systems reviewed and negative Constitutional: denies: chills, fever Eyes: denies: eye pain, vision change ENT: denies: ear pain, throat pain Respiratory: shortness of breath. denies: cough Cardiovascular: chest pain. denies: palpitations Gastrointestinal: nausea, vomiting Genitourinary: denies: dysuria, discharge Musculoskeletal: denies: back pain, arthralgia Skin: denies: rash, lesions Neurological: denies: headache, weakness ED Past Medical Hx - Past Medical History Hx Hypertension: Yes Hx Congestive Heart Failure: No Hx Diabetes: No Hx Liver Disease: No Hx Sickle Cell Disease: No Hx Arthritis: Yes Hx Asthma: No Hx COPD: No - Surgical History Hx Appendectomy: Yes (2017) Additional Surgical History: Cyst r emoved from colon - Social History Smoking Status: Current Every Day Smoker - Medications Home Medications: Home Medications Medication Instructions Recorded Confirmed Last Taken Type Acetaminophen [Acetaminophen TAB] 650 mg PO Q6H PRN #15 tablet 04/13/18 Unknown Rx Pantoprazole [Protonix TAB] 40 mg PO QDAY 14 Days #7 tablet 04/13/18 Unknown Rx hydrALAZINE [Apresoline TAB] 10 mg PO TID #90 tablet 04/13/18 Unknown Rx Ondansetron [Zofran Odt] 4 mg PO Q8HR PRN #15 tab.rapdis 08/12/18 Unknown Rx amLODIPine [Norvasc] 10 mg PO DAILY #30 tab 08/12/18 Unknown Rx ED Physical Exam - General Limitations: No Limitations - Other Other exam information: GENERAL: Patient is actively vomiting. HEENT: Normocephalic. Atraumatic. Patient has moist mucous membranes. EYES: Extraocular motions are intact. Pupils are equal and reactive to light bilaterally. NECK: Supple. Trachea is midline. CHEST/LUNGS: Clear to auscultation. There is no respiratory distress noted. HEART/CARDIOVASCULAR: Regular. There is mild tachycardia. There is no obvious murmur. ABDOMEN: Abdomen is soft, nontender. Patient has normal bowel sounds. There is no abdominal distention. SKIN: Skin is warm and dry. NEURO: The patient is awake, alert, and oriented. The patient is cooperative. The patient has no focal neurologic deficits. The patient has normal speech. MUSCULOSKELETAL: There is no tenderness or deformity. There is no evidence of acute injury. ED Course Vital Signs 08/11/18 08/11/18 08/11/18 18:31 19:34 19:45 Temperature 98 F 97.8 F Pulse Rate 59 L 57 L 55 L Respiratory 22 18 21 Rate Blood Pressure 215/95 204/102 Blood Pressure 201/95 [Left] O2 Sat by Pulse 100 100 100 Oximetry 08/11/18 08/11/18 08/11/18 19:58 20:35 21:01 Temperature Pulse Rate 105 H 54 L Respiratory 18 18 22 Rate Blood Pressure 200/100 198/89 Blood Pressure [Left] O2 Sat by Pulse 100 99 Oximetry 08/11/18 08/11/18 08/11/18 22:30 22:33 22:59 Temperature 97.9 F Pulse Rate 63 61 65 Respiratory 20 18 18 Rate Blood Pressure 140/86 140/86 Blood Pressure 190/84 [Left] O2 Sat by Pulse 98 98 99 Oximetry 08/11/18 08/11/18 08/11/18 23:00 23:01 23:30 Temperature Pulse Rate 65 59 L 56 L Respiratory 18 14 Rate Blood Pressure 190/84 187/85 139/102 Blood Pressure [Left] O2 Sat by Pulse 98 98 Oximetry 08/12/18 08/12/18 01:01 01:59 Temperature Pulse Rate 67 68 Respiratory 17 Rate Blood Pressure 189/92 179/75 Blood Pressure [Left] O2 Sat by Pulse 97 Oximetry XAVIER score - Xavier Score Age > 65: (0) No Aspirin use within the Past 7 Days: (0) No 3 or more CAD Risk Factors: (0) No 2 or more Angina events in past 24 hrs: (1) Yes Known CAD with more than 50% Stenosis: (0) No Elevated Cardiac Markers: (0) No ST Deviation Greater than 0.5mm: (0) No XAVIER Score: 1 ED Medical Decision Making - Lab Data Result diagrams: 08/11/18 18:36 08/11/18 18:36 - EKG Data -: EKG Interpreted by Me EKG shows normal: sinus rhythm, axis, intervals, QRS complexes, ST-T waves Rate: bradycardia (56 bpm) - EKG Data When compared to previous EKG there are: no significant change Interpretation: unchanged when compared t (04/12/18) - Radiology Data Radiology results: image reviewed interpreted by me: Chest x-ray does not show any pneumothorax, pleural effusion, pneumonia or obvious focal consolidation. - Medical Decision Making Patient presents to the emergency department with a complaint of chest pain, nausea and vomiting. She had an EKG that did not show any signs of ST elevation AK or dysrhythmia. Chest x-ray did not show any focal consolidation, pneumothorax, pneumonia, pleural effusions, or any other acute process. Patient's labs were mostly unremarkable including negative troponins 3 and a negative dimer. On top of all this, the patient had a negative stress test about 4 months ago in March 2018. She is low on the heart score criteria and XAVIER score. Patient was given a dose of pain medication, a few different doses of antiemetics, and some IV fluid resuscitation. She was reevaluated multiple times over multiple hours and has improved. The vomiting ceased and eventually the patient was able to pass an oral challenge. The patient's chest pains completely resolved as well. For all these reasons, the patient appears safe for discharge home at this time. She will be given referrals for primary care and cardiology. She will return to the ER with any worsening of her symptoms or any acute distress. The patient had elevated blood pressure but admits to m edication noncompliance. Her blood pressure came down to a more reasonable level after a few doses of blood pressure medication. Patient will be started on amlodipine and we discussed dietary and lifestyle changes to make as well. She is instructed to keep a blood pressure log. - Differential Diagnosis AK, PE, costochondritis, GERD, pneumonia Critical Care Time: No Critical care attestation.: If time is entered above; I have spent that time in minutes in the direct care of this critically ill patient, excluding procedure time. ED Disposition Clinical Impression: Nausea & vomiting Qualifiers: Vomiting type: unspecified Vomiting Intractability: non-intractable Qualified Code(s): R11.2 - Nausea with vomiting, unspecified Hypertension Qualifiers: Hypertension type: essential hypertension Qualified Code(s): I10 - Essential (primary) hypertension Gastritis Qualifiers: Gastritis type: unspecified gastritis Chronicity: unspecified Gastritis bleeding: without bleeding Qualified Code(s): K29.70 - Gastritis, unspecified, without bleeding Chest pain Qualifiers: Chest pain type: unspecified Qualified Code(s): R07.9 - Chest pain, unspecified Disposition: - TO HOME OR SELFCARE Is pt being admited?: No Condition: Stable Instructions: Chest Pain (ED), Gastritis (ED), Acute Nausea and Vomiting (ED), Hypertension (ED) Additional Instructions: Please increase your oral rehydration. Follow up with a primary care physician in the next few days. Return to the emergency Department with any worsening of your symptoms or any acute distress. I am giving you a referral for some local primary care physicians, as well as a local admissions consultant, Dr. Lynn. I am starting you on a blood pressure medication called Norvasc/amlodipine. This medication is taken once daily, usually in the morning. Try and stay away from foods that are high in salt and caffeinated products. Keep a blood pres sure log. Prescriptions: amLODIPine [Norvasc] 10 mg PO DAILY #30 tab Ondansetron [Zofran Odt] 4 mg PO Q8HR PRN #15 tab.rapdis PRN Reason: Nausea Referrals: FLORIAN LYNN MD [Staff Physician] - 2-3 Days RED PIKE MD [Staff Physician] - 2-3 Days [facility] [Outside] - 2-3 Days Forms: Work/School Release Form(ED) Time of Disposition: 03:48
[2018-08-11] MEDS ORDERED: MORPHINE ONE (20:35)
[2018-08-11] MEDS ORDERED: APRESOLINE ONE (20:36)
[2018-08-11 20:57] LABS: Alanine Aminotransferase 15 units/L (7-56); Albumin 4.7 g/dL (3.9-5)
[2018-08-11 20:58] LABS: Bilirubin,Direct < 0.2 mg/dL (0-0.2)
[2018-08-11] MEDS ORDERED: REGLAN IV ONE (23:41)
[2018-08-12] MEDS ORDERED: NORVASC PO ONE (01:29)
[2018-08-12 03:58] LABS: Bilirubin,Urine NEG (Negative); Blood,Urine SM (Negative); Color,Urine Yellow (Yellow); Mucus,Urine FEW /HPF; RBC,Urine < 1.0 /HPF (0.0-6.0); Urobilinogen,Urine < 2.0 mg/dL (<2.0)
[2018-08-12 04:47] VITALS: BP 168/100
== END 2018-08-12 04:15 | disposition home or self-care (01) ==
LOC: ED 18:17
DX: K29.70 Gastritis, unspecified, without bleeding (principal); I10 Essential (primary) hypertension; M19.90 Unspecified osteoarthritis, unspecified site; F17.200 Nicotine dependence, unspecified, uncomplicated; Z90.89 Acquired absence of other organs
CPT/HCPCS: 36415; 71045; 80048; 80076; 81001; 83690; 84484; 84703; 85025; 85379; 93005; 93010; 96374; 96375; 96376; 99284; C9113; J0360; J2270; J2405; J2765

== ENCOUNTER 2020-12-09 07:40 | Emergency (ER) | payer BC | END 2020-12-09 08:30 | disposition left against medical advice (07) | LOC: ED 07:40 | DX: R10.12 Left upper quadrant pain (principal); R10.11 Right upper quadrant pain; Z53.21 Procedure and treatment not carried out due to patient leaving prior to being seen by health care provider ==